=== PATIENT | female | born 1940 | race Caucasian/White ===

== ENCOUNTER 2017-11-07 08:08 | Inpatient (IN) | payer MEDICARE, OTHER ==
[~2017-11-07 08:08] MED LIST: Bupivacaine 25%/EPINEPHrine/PF 30 ML ONE; Lactated Ringers 1,000 ML IV SCH; Midazolam 1 MG/ML 2 ML SDV ONE; Octyl 2-Cyanoacrylate 1 Tube ONE; Ondansetron 4 MG/2 ML SDV ONE; Propofol 200 MG/20 ML SDV ONE; Rocuronium 10 MG/ML 10 ML Syringe ONE; ceFAZolin 1 GM in Premix Bag 1 BAG IV ONE; fentaNYL 250 MCG/5 ML SDV ONE
--- NOTE | 2017-11-07 09:17 | PCM.PREANE ---
Preanesthetic Assessment - Anesthesia/Transfusion/Family Hx Anesthesia History: Prior Anesthesia Without Reaction Type of Anesthesia Reaction: Excessive Nausea/Vomiting Other Type of Anesthesia Reaction Comment: states "is hard to wake up" Family History of Anesthesia Reaction: No Transfusion History: Prior Transfusion Without Reaction Type of Transfusion Reactions: Other Type of Transfusion Reaction: "shaking" Intubation History: Unknown - Review of Systems General: No Symptoms Pulmonary: No Symptoms Cardiovascular: No Symptoms Gastrointestinal: Abdominal Pain Neurological: No Symptoms Other: Reports: None - Physical Assessment O2 Sat by Pulse Oximetry: 96 Respiratory Rate: 16 Vital Signs: Last Vital Signs Temp 36.8 C 11/07/17 09:06 Pulse 96 11/07/17 09:06 Resp 16 11/07/17 09:06 BP 145/70 H 11/07/17 09:06 Pulse Ox 96 11/07/17 09:06 Height: 1.52 m Weight: 81.647 kg ASA Class: 3 Mental Status: Alert & Oriented x3 Airway Class: Mallampati = 2 Dentition: Reports: Normal Dentition (root canals x2 upper front teeth ( discolored)) Thyro-Mental Finger Breadths: 2 Mouth Opening Finger Breadths: 2 ROM/Head Extension: Limited/Partial Lungs: Clear to Auscultation, Normal Respiratory Effort Cardiovascular: Regular Rate, Regular Rhythm - Allergies Allergies/Adverse Reactions: Allergies Allergy/AdvReac Type Severity Reaction Status Date / Time brimonidine [From Alphagan P] Allergy "eye Verified 10/17/17 09:57 infection" ciprofloxacin [From Cipro] Allergy "made me Verified 10/17/17 09:57 tired" lisinopril Allergy Hives Verified 10/17/17 09:57 nitrofurantoin Allergy Rash Verified 10/17/17 09:57 [From Macrobid] Sulfa (Sulfonamide Allergy Rash Verified 10/17/17 09:57 Antibiotics) - Blood Blood Available: No - Anesthesia Plan Pre-Op Medication Ordered: None - Acknowledgements Anesthesia Type Planned: General Anesthesia Pt an Appropriate Candidate for the Planned Anesthesia: Yes Alternatives and Risks of Anesthesia Discussed w Pt/Guardian: Yes Pt/Guardian Understands and Agrees with Anesthesia Plan: Yes PreAnesthesia Questionnaire HEENT History: Reports: Glaucoma, Other (See Below) Other HEENT History: wears glasses Cardiovascular History: Reports: Hypertension Gastrointestinal History: Reports: None Genitourinary History: Reports: None NAIL SETTER History: Reports: , Spontaneous Musculoskeletal History: Reports: Fracture Psychiatric History: Reports: Anxiety, Depression Endocrine/Metabolic History: Reports: Hypothyroidism, Obesity/BMI 30+, Other ( See Below) Other Endocrine/Metabolic History: states is hypoglycemic Hematologic History: Reports: Blood Transfusion(s) - Past Surgical History Head Surgeries/Procedures: Reports: None GI Surgical History: Reports: Other (See Below) Other GI Surgeries/Procedures: laparotomy for stomach tumor Musculoskeletal Surgical History: Reports: Other (See Below) Other Musculoskeletal Surgeries/Procedures:: surgical tx for fx rt leg - SUBSTANCE USE Smoking Status *Q: Former Smoker Recreational Drug Use History: No - HOME MEDS Home Medications: Home Meds Amoxicillin 500 mg PO TID 10/17/17 [History] ClonazePAM [KlonoPIN] 1 tab PO ASDIRECTED PRN 10/17/17 [History] Latanoprost [Xalatan 0.005% Ophth Soln] 1 drop EYEBOTH BEDTIME 10/17/17 [History ] Levothyroxine Sodium [Levoxyl] 88 mcg PO DAILY 10/17/17 [History] Pilocarpine HCl 1 drop EYERT DAILY 10/17/17 [History] Timolol [Betimol 0.5% Ophth Soln] 1 drop EYEBOTH DAILY 10/17/17 [History] amLODIPine [Norvasc] 2.5 mg PO BEDTIME 10/17/17 [History] - CURRENT (IN HOUSE) MEDS Current Meds: Current Medications Lactated Ringer's (Ringers, Lactated) 1,000 mls @ 125 mls/hr IV ASDIRECTED REPLACED BY [facility] Last Admin: 11/07/17 08:57 Dose: 125 mls/hr Discontinued Medications Fentanyl (Sublimaze) Confirm Administered Dose 250 mcg .ROUTE .STK-MED ONE Stop: 11/07/17 08:06 Cefazolin Sodium/Dextrose 1 gm (/ Premix) 50 mls @ 100 mls/hr IV ONETIME ONE Stop: 11/07/17 05:29 Cefazolin Sodium/Dextrose 1 gm (/ Premix) 50 mls @ 100 mls/hr IV ONETIME ONE Stop: 11/07/17 14:57 Lactated Ringer's (Ringers, Lactated) 1,000 mls @ 125 mls/hr IV ASDIRECTED REPLACED BY [facility] Bupivacaine HCl/Epinephrine Bitart (Sensor Mpf 0.25%-Epi 1:[id number]) Confirm Administered Dose 30 mls @ as directed .ROUTE .STK-MED ONE Stop: 11/07/17 07:26 Acetaminophen (Ofirmev) Confirm Administered Dose 100 mls @ as directed IV .STK- MED ONE Stop: 11/07/17 08:23 Midazolam HCl (Versed 1 Mg/Ml) Confirm Administered Dose 2 mg .ROUTE .STK-MED ONE Stop: 11/07/17 08:06 Octyl Cyanoacrylate (Dermabond Advance) Confirm Administered Dose 1 applic .ROUTE .STK-MED ONE Stop: 11/07/17 07:50 Ondansetron HCl (Zofran) Confirm Administered Dose 4 mg .ROUTE .STK-MED ONE Stop: 11/07/17 08:05 Propofol (Diprivan 20 Ml) Confirm Administered Dose 200 mg .ROUTE .STK-MED ONE Stop: 11/07/17 08:06 Rocuronium [place] (Zemuron) Confirm Administered Dose 100 mg .ROUTE .STK-MED ONE Stop: 11/07/17 08:05
[2017-11-07] MEDS ORDERED: Lidocaine 2% 5 ML SDV ONE (09:42)
[2017-11-07] MEDS ORDERED: Dexamethasone 4 MG/ML 5 ML MDV ONE (09:43)
[2017-11-07] MEDS ORDERED: fentaNYL 100 MCG/2 ML SDV ONE (10:47)
[2017-11-07] MEDS ORDERED: HYDROmorphone 2 MG/ML SDV ONE (10:48)
[2017-11-07] MEDS ORDERED: Phenylephrine/Normal Saline 100 MCG/ML 10 ML Syringe ONE (10:52)
[2017-11-07] MEDS ORDERED: Mineral Oil/Petrolatum Ophth Oint 3.5 GM Tube ONE (10:52)
[2017-11-07] MEDS ORDERED: Bupivacaine 0.5% 30 ML SDV ONE (11:00)
[2017-11-07] MEDS ORDERED: Neostigmine Methylsulfate 1 MG/ML 5 ML Syringe ONE (12:10)
[2017-11-07] MEDS ORDERED: Glycopyrrolate 0.2 MG/ML SDV ONE (12:10)
[2017-11-07] MEDS ORDERED: Furosemide 40 MG/4 ML VIAL ONE (12:11)
--- NOTE | 2017-11-07 13:05 | PCM.OPNOTE ---
- General Post-Op/Procedure Note Date of Surgery/Procedure: 11/07/17 Operative Procedure(s): open cholecystectomy and drain placement Findings: gb is thickened wall, distended and bile is purulent, and many large and small gallstones; severe adherence from prior surgery dictated this to be an open surgery Pre Op Diagnosis: acute and chronic cholecystitis Post-Op Diagnosis: Same Anesthesia Technique: General ET Tube Primary Surgeon: Liam Lynne Secondary Surgeon: Chao Ladd Shellac Polisher: resident Pathology: sent Surgical Drain/Tube Type: Juan Luis Martinez Drain Complications: None Condition: Good
[2017-11-07] MEDS ORDERED: Morphine PF 30 MG/30 ML PCA Vial IV PRN (13:10)
[2017-11-07] MEDS ORDERED: Lactated Ringers 1,000 ML IV SCH (13:15)
--- NOTE | 2017-11-07 14:04 | PCM.POSTAN ---
POST ANESTHESIA ASSESSMENT - MENTAL STATUS Mental Status: Alert, Oriented - RESPIRATORY Respiratory Status: Airway Patent, O2 Saturation Stable - CARDIOVASCULAR CV Status: Pulse Rate WNL, Blood Pressure Stable - GASTROINTESTINAL GI Status: No Symptoms - PAIN Pain Score: 2 - POST OP HYDRATION Hydration Status: Adequate & Stable - OBSERVATIONS Free Text/Narrative:: no anesthesia problems
[2017-11-07] MEDS ORDERED: ceFAZolin 1 GM in Premix Bag 1 BAG IV ONE (14:28)
[2017-11-07] MEDS: Levofloxacin/Dextrose 5%-Water 750 MG in Premix Bag 1 BAG IV SCH (14:37)
--- NOTE | 2017-11-07 16:20 | PCM48HPAN ---
Post Anesthesia Note - EVALUATION WITHIN 48HRS OF ANESTHETIC Vital Signs in Normal Range: Yes Patient Participated in Evaluation: Yes Respiratory Function Stable: Yes Airway Patent: Yes Cardiovascular Function Stable: Yes Hydration Status Stable: Yes Pain Control Satisfactory: Yes Nausea and Vomiting Control Satisfactory: Yes Mental Status Recovered: Yes Resp Rate: 10 - COMMENTS/OBSERVATIONS Free Text/Narrative:: remains in ICU. Alert and oriented x 3. vss
[2017-11-07] MEDS: Ondansetron 4 MG/2 ML SDV IVPUSH PRN (18:19)
[2017-11-08] MEDS: Lactated Ringers 1,000 ML IV SCH ×3 (00:26→22:48)
[2017-11-08] MEDS: Ondansetron 4 MG/2 ML SDV IVPUSH PRN ×2 (08:22→16:59)
[2017-11-08] MEDS ORDERED: Lactated Ringers 1,000 ML IV ONE (08:49)
[2017-11-08] MEDS ORDERED: Magnesium Sulfate/Water 2 GM in Premix Bag 1 BAG IV ONE (08:52)
[2017-11-08] MEDS ORDERED: ClonazePAM 0.5 MG Tab PO PRN ×3 (08:54→10:40)
[2017-11-08] MEDS ORDERED: Pilocarpine 4% Ophth Soln 15 ML Bot EYERT SCH (09:00)
--- NOTE | 2017-11-08 09:09 | PCM.SURGPN ---
- General Info Date of Service: 11/08/17 POD#: 1 Post-Op Diagnosis: cholecystitis suppurativa Functional Status: Reports: Pain Controlled - Review of Systems General: Reports: No Symptoms HEENT: Reports: No Symptoms Pulmonary: Reports: No Symptoms Gastrointestinal: Reports: No Symptoms (ruth ann ice chips, pain in good control) - Patient Data Vitals - Most Recent: Last Vital Signs Temp 97.3 F 11/08/17 04:00 Pulse 69 11/07/17 19:00 Resp 15 11/08/17 07:00 BP 143/63 H 11/08/17 07:00 Pulse Ox 94 L 11/08/17 07:00 Weight - Most Recent: 188 lb 0.869 oz I&O - Last 24 Hours: Intake & Output 11/07/17 11/08/17 11/08/17 22:59 06:59 14:59 Intake Total 200 1244 Output Total 440 240 Balance -240 1004 Lab Results Last 24 Hrs: Laboratory Results - last 24 hr 11/07/17 11/07/17 11/08/17 Range/Units 11:25 22:06 05:22 WBC 16.16 H 14.35 H (4.0-11.0) K/uL RBC 5.18 4.71 (4.30-5.90) M/uL Hgb 15.4 13.7 (12.0-16.0) g/dL Hct 45.0 41.2 (36.0-46.0) % MCV 86.9 87.5 (80.0-98.0) fL MCH 29.7 29.1 (27.0-32.0) pg MCHC 34.2 33.3 (31.0-37.0) g/dL RDW Std Deviation 47.9 48.1 (28.0-62.0) fl RDW Coeff of Shira 15 15 (11.0-15.0) % Plt Count 257 218 (150-400) K/uL MPV 9.50 9.30 (7.40-12.00) fL Neut % (Auto) 88.3 H 82.6 H (48.0-80.0) % Lymph % (Auto) 4.4 L 7.5 L (16.0-40.0) % Bullitt % (Auto) 7.2 9.7 (0.0-15.0) % Eos % (Auto) 0.0 0.1 (0.0-7.0) % Baso % (Auto) 0.1 0.1 (0.0-1.5) % Neut # (Auto) 14.3 H 11.9 H (1.4-5.7) K/uL Lymph # (Auto) 0.7 1.1 (0.6-2.4) K/uL Bullitt # (Auto) 1.2 H 1.4 H (0.0-0.8) K/uL Eos # (Auto) 0.0 0.0 (0.0-0.7) K/uL Baso # (Auto) 0.0 0.0 (0.0-0.1) K/uL Nucleated RBC % 0.0 0.0 /100WBC Nucleated RBCs # 0 0 K/uL Sodium (136-145) mmol/L Potassium (3.5-5.1) mmol/L Chloride (98-107) mmol/L Carbon Dioxide (21.0-32.0) mmol/L BUN (7.0-18.0) mg/dL Creatinine (0.6-1.0) mg/dL Est Cr Clr Drug Dosing mL/min Estimated GFR (MDRD) ml/min Glucose (74-106) mg/dL Calcium (8.5-10.1) mg/dL Magnesium (1.5-2.0) mg/dL Total Bilirubin (0.2-1.0) mg/dL AST (15-37) U/L ALT (14-63) U/L Alkaline Phosphatase (46-116) U/L Total Protein (6.4-8.2) g/dL Albumin (3.4-5.0) g/dL Globulin (2.0-3.5) g/dL Albumin/Globulin Ratio (1.3-2.8) Blood Type O POSITIVE Antibody Screen NEGATIVE Crossmatch See Detail 11/08/17 11/08/17 Range/Units 05:22 05:22 WBC (4.0-11.0) K/uL RBC (4.30-5.90) M/uL Hgb (12.0-16.0) g/dL Hct (36.0-46.0) % MCV (80.0-98.0) fL MCH (27.0-32.0) pg MCHC (31.0-37.0) g/dL RDW Std Deviation (28.0-62.0) fl RDW Coeff of Shira (11.0-15.0) % Plt Count (150-400) K/uL MPV (7.40-12.00) fL Neut % (Auto) (48.0-80.0) % Lymph % (Auto) (16.0-40.0) % Bullitt % (Auto) (0.0-15.0) % Eos % (Auto) (0.0-7.0) % Baso % (Auto) (0.0-1.5) % Neut # (Auto) (1.4-5.7) K/uL Lymph # (Auto) (0.6-2.4) K/uL Bullitt # (Auto) (0.0-0.8) K/uL Eos # (Auto) (0.0-0.7) K/uL Baso # (Auto) (0.0-0.1) K/uL Nucleated RBC % /100WBC Nucleated RBCs # K/uL Sodium 140 (136-145) mmol/L Potassium 4.6 (3.5-5.1) mmol/L Chloride 105 (98-107) mmol/L Carbon Dioxide 27.9 (21.0-32.0) mmol/L BUN 13 (7.0-18.0) mg/dL Creatinine 1.1 H (0.6-1.0) mg/dL Est Cr Clr Drug Dosing 30.28 mL/min Estimated GFR (MDRD) 48.0 ml/min Glucose 154 H (74-106) mg/dL Calcium 8.4 L (8.5-10.1) mg/dL Magnesium 1.2 L (1.5-2.0) mg/dL Total Bilirubin 0.7 (0.2-1.0) mg/dL AST 88 H (15-37) U/L ALT 82 H (14-63) U/L Alkaline Phosphatase 55 (46-116) U/L Total Protein 5.6 L (6.4-8.2) g/dL Albumin 2.4 L (3.4-5.0) g/dL Globulin 3.2 (2.0-3.5) g/dL Albumin/Globulin Ratio 0.8 L (1.3-2.8) Blood Type Antibody Screen Crossmatch Med Orders - Current: Current Medications Amlodipine Besylate (Norvasc) 2.5 mg PO BEDTIME SELENE Clonazepam (Klonopin) 0.5 mg PO BEDTIME PRN PRN Reason: Anxiety Levofloxacin/Dextrose 750 mg/ (Premix) 150 mls @ 100 mls/hr IV Q24H SELENE Last Admin: 11/07/17 14:37 Dose: 100 mls/hr Lactated Ringer's (Ringers, Lactated) 1,000 mls @ 100 mls/hr IV ASDIRECTED SELENE Last Admin: 11/08/17 00:26 Dose: 100 mls/hr Lactated Ringer's (Ringers, Lactated) 1,000 mls @ 999 mls/hr IV .BOLUS ONE Stop: 11/08/17 09:49 Last Admin: 11/08/17 08:45 Dose: 999 mls/hr Magnesium Sulfate 2 gm/ Premix 50 mls @ 50 mls/hr IV ONETIME ONE Stop: 11/08/17 09:51 Latanoprost (Xalatan 0.005% Ophth Soln) 0 ml EYEBOTH BEDTIME SELENE Levothyroxine Sodium (Synthroid) 88 mcg PO ACBREAKFAST SELENE Morphine Sulfate (Morphine Injection Machine Operator 30 Mg In 30 Ml) 0 mg IV ASDIRECTED PRN; Protocol PRN Reason: Pain Last Admin: 11/07/17 14:24 Dose: 30 mg Ondansetron HCl (Zofran) 4 mg IVPUSH Q8H PRN PRN Reason: Nausea/Vomiting Last Admin: 11/08/17 08:22 Dose: 4 mg Pilocarpine HCl (Pilocar 4% Ophth Soln) 0 ml EYERT DAILY SELENE Timolol Maleate (Timoptic 0.5% Ophth Soln) 1 ml EYEBOTH DAILY [facility] Discontinued Medications Bupivacaine HCl (Marcaine 0.5%) Confirm Administered Dose 120 ml .ROUTE .STK- MED ONE Stop: 11/07/17 11:01 Clonazepam (Klonopin) 0.5 mg PO ASDIRECTED PRN PRN Reason: Anxiety Dexamethasone (Dexamethasone) Confirm Administered Dose 20 mg .ROUTE .STK-MED ONE Stop: 11/07/17 09:44 Fentanyl (Sublimaze) Confirm Administered Dose 250 mcg .ROUTE .STK-MED ONE Stop: 11/07/17 08:06 Fentanyl (Sublimaze) Confirm Administered Dose 100 mcg .ROUTE .STK-MED ONE Stop: 11/07/17 10:48 Furosemide (Lasix) Confirm Administered Dose 40 mg .ROUTE .STK-MED ONE Stop: 11/07/17 12:12 Glycopyrrolate (Robinul) Confirm Administered Dose 0.4 mg .ROUTE .STK-MED ONE Stop: 11/07/17 12:11 Hydromorphone HCl (Dilaudid) Confirm Administered Dose 2 mg .ROUTE .STK-MED ONE Stop: 11/07/17 10:49 Cefazolin Sodium/Dextrose 1 gm (/ Premix) 50 mls @ 100 mls/hr IV ONETIME ONE Stop: 11/07/17 05:29 Last Admin: 11/07/17 14:33 Dose: Not Given Cefazolin Sodium/Dextrose 1 gm (/ Premix) 50 mls @ 100 mls/hr IV ONETIME ONE Stop: 11/07/17 14:57 Lactated Ringer's (Ringers, Lactated) 1,000 mls @ 125 mls/hr IV ASDIRECTED SELENE Last Infusion: 11/07/17 16:52 Dose: 100 mls/hr Lactated Ringer's (Ringers, Lactated) 1,000 mls @ 125 mls/hr IV ASDIRECTED SELENE Bupivacaine HCl/Epinephrine Bitart (Sensorc Mpf 0.25%-Epi 1:[id number]) Confirm Administered Dose 30 mls @ as directed .ROUTE .STK-MED ONE Stop: 11/07/17 07:26 Acetaminophen (Ofirmev) Confirm Administered Dose 100 mls @ as directed IV .STK- MED ONE Stop: 11/07/17 08:23 Lactated Ringer's (Ringers, Lactated) 1,000 mls @ 75 mls/hr IV ASDIRECTED SELENE Lidocaine (Xylocaine-Mpf 2%) Confirm Administered Dose 5 ml .ROUTE .STK-MED ONE Stop: 11/07/17 09:43 Midazolam HCl (Versed 1 Mg/Ml) Confirm Administered Dose 2 mg .ROUTE .STK-MED ONE Stop: 11/07/17 08:06 Mineral Oil/White Petrolatum (Lacri-Lube S.O.P Oint) Confirm Administered Dose 3.5 gm .ROUTE .STK-MED ONE Stop: 11/07/17 10:53 Neostigmine Methylsulfate (Neostigmine) Confirm Administered Dose 5 mg .ROUTE .STK-MED ONE Stop: 11/07/17 12:11 Octyl Cyanoacrylate (Dermabond Advance) Confirm Administered Dose 1 applic .ROUTE .STK-MED ONE Stop: 11/07/17 07:50 Ondansetron HCl (Zofran) Confirm Administered Dose 4 mg .ROUTE .STK-MED ONE Stop: 11/07/17 08:05 Phenylephrine HCl (Phenylephrine In Ns 100 Mcg/Ml) Confirm Administered Dose 1 mg .ROUTE .STK-MED ONE Stop: 11/07/17 10:53 Propofol (Diprivan 20 Ml) Confirm Administered Dose 200 mg .ROUTE .STK-MED ONE Stop: 11/07/17 08:06 Rocuronium [place] (Zemuron) Confirm Administered Dose 100 mg .ROUTE .STK-MED ONE Stop: 11/07/17 08:05 - Exam Wound/Incisions: Dressing Dry and Intact General: Alert, Oriented Lungs: Clear to Auscultation, Normal Respiratory Effort Cardiovascular: Regular Rate, Regular Rhythm GI/Abdominal Exam: Soft, No Distention Extremities: Normal Inspection Skin: Warm, Dry - Problem List Review Problem List Initiated/Reviewed/Updated: Yes - My Orders Last 24 Hours: Active Orders 24 hr Category Date Time Status Admission Status [Patient Status] [ADT] Routine ADT 11/07/17 13:06 Active Admission Status [Patient Status] [ADT] Routine ADT 11/07/17 13:57 Active Communication Order [RC] Q12H Care 11/07/17 16:47 Active Communication Order [RC] ROUTINE Care 11/07/17 13:13 Active Communication Order [RC] ROUTINE Care 11/07/17 13:19 Active EKG Documentation Completion [RC] STAT Care 11/08/17 06:37 Active Clear Liquid Diet [DIET] Diet 11/08/17 Lunch Active NPO [Nothing Per Oral Diet] [DIET] Diet 11/07/17 Dinner Active RED BLOOD CELLS LP [BBK] Routine Lab 11/07/17 11:25 Results TYPE AND SCREEN [BBK] Routine Lab 11/07/17 11:25 Results ClonazePAM [KlonoPIN] Med 11/08/17 09:15 Active 0.5 mg PO BEDTIME PRN Lactated Ringers [Ringers, Lactated] 1,000 ml Med 11/08/17 08:49 Active IV .BOLUS Lactated Ringers [Ringers, Lactated] 1,000 ml Med 11/07/17 16:46 Active IV ASDIRECTED Latanoprost [Xalatan 0.005% Ophth Soln] Med 11/08/17 21:00 Active 0 ml EYEBOTH BEDTIME Levofloxacin/Dextrose 5%-Water [Levaquin in D5W 750 MG/ Med 11/07/17 13:30 Active 150 ML] 750 mg Premix Bag 1 bag IV Q24H Levothyroxine [Synthroid] Med 11/08/17 07:30 Active 88 mcg PO ACBREAKFAST Magnesium Sulfate/Water [Magnesium Sulfate 2 GM in Med 11/08/17 08:52 Active Water 50 ML] 2 gm Premix Bag 1 bag IV ONETIME Morphine PF [Morphine SAND DRIER 30 MG in 30 ML] Med 11/07/17 13:10 Active 0 mg IV ASDIRECTED PRN Ondansetron [Zofran] Med 11/07/17 13:13 Active 4 mg IVPUSH Q8H PRN Pilocarpine [Pilocar 4% Ophth Soln] Med 11/08/17 09:00 Active 0 ml EYERT DAILY Timolol Maleate [Timoptic 0.5% Ophth Soln] Med 11/08/17 09:00 Active 1 ml EYEBOTH DAILY amLODIPine [Norvasc] Med 11/08/17 21:00 Active 2.5 mg PO BEDTIME Transfuse Red Blood Cells [COMM] Urgent Oth 11/07/17 11:38 Ordered Medication Orders Amlodipine Besylate (Norvasc) 2.5 mg PO BEDTIME SELENE Clonazepam (Klonopin) 0.5 mg PO BEDTIME PRN PRN Reason: Anxiety Levofloxacin/Dextrose 750 mg/ (Premix) 150 mls @ 100 mls/hr IV Q24H [facility] Last Admin: 11/07/17 14:37 Dose: 100 mls/hr Lactated Ringer's (Ringers, Lactated) 1,000 mls @ 100 mls/hr IV ASDIRECTED [facility] Last Admin: 11/08/17 00:26 Dose: 100 mls/hr Lactated Ringer's (Ringers, Lactated) 1,000 mls @ 999 mls/hr IV .BOLUS ONE Stop: 11/08/17 09:49 Last Admin: 11/08/17 08:45 Dose: 999 mls/hr Magnesium Sulfate 2 gm/ Premix 50 mls @ 50 mls/hr IV ONETIME ONE Stop: 11/08/17 09:51 Latanoprost (Xalatan 0.005% Ophth Soln) 0 ml EYEBOTH BEDTIME SELENE Levothyroxine Sodium (Synthroid) 88 mcg PO ACBREAKFAST SELENE Morphine Sulfate (Morphine Injection Machine Operator 30 Mg In 30 Ml) 0 mg IV ASDIRECTED PRN; Protocol PRN Reason: Pain Last Admin: 11/07/17 14:24 Dose: 30 mg Ondansetron HCl (Zofran) 4 mg IVPUSH Q8H PRN PRN Reason: Nausea/Vomiting Last Admin: 11/08/17 08:22 Dose: 4 mg Admin: 11/07/17 18:19 Dose: 4 mg Pilocarpine HCl (Pilocar 4% Ophth Soln) 0 ml EYERT DAILY SELENE Timolol Maleate (Timoptic 0.5% Ophth Soln) 1 ml EYEBOTH DAILY SELENE - Assessment Assessment (Free Text/Narrative):: Doing well, pod#1 from open cholecystectomy and drain placement; got 2 RBC intraop; postop urine output was good, 30+cc /hr, a bit mike, and pt is quite thirsty; heart rate in the 100-110; BR 120+; wt no change; start clear liquid diet; likely txf to floor at noon, poss home in the morning; colten output 50 per shift, ss. Mg 1.2, low, replenished w 2 gm - Plan Plan (Free Text/Narrative):: Doing well, pod#1 from open cholecystectomy and drain placement; got 2 RBC intraop; postop urine output was good, 30+cc /hr, a bit mike, and pt is quite thirsty; heart rate in the 100-110; BR 120+; wt no change; start clear liquid diet; likely txf to floor at noon, poss home in the morning; colten output 50 per shift, ss. Mg 1.2, low, replenished w 2 gm
--- NOTE | 2017-11-08 09:21 | OR ---
SURGEON: Liam Lynne MD DATE OF PROCEDURE: 11/07/2017 PREOPERATIVE DIAGNOSIS: Acute on chronic cholecystitis. POSTOPERATIVE DIAGNOSIS: Gallbladder suppurativa. PROCEDURE PERFORMED: Open cholecystectomy and drain placement. ASSISTANTS: Chao Ladd M.D. and surgical device sales representative. INTRAOPERATIVE FINDINGS: 1. The patient has severe adherence from prior surgery and makes laparoscopic surgery not possible. 2. Gallbladder is thickened walled and with large exudate and hemorrhagic on the surface and severe induration of surrounding organs, consistent with acute on chronic cholecystitis. 3. Surgicel and Avitene have been used to help in hemostasis. 4. Flat 10 CASSIUS drain has been placed. PROCEDURE IN DETAIL: The patient was taken to the operating room and placed in supine position. Upon induction of general endotracheal anesthesia, the patient's abdomen was prepped and draped in a sterile fashion. A time out was done, pt identified abx confirmed, procedure identified, then procedure started. After assessment of appropriate landmarks, vertical incision was made right supraumbilical and was expecting to do a laparoscopic cholecystectomy and attempted to put in the trocar using Jeff technique. After making the skin incision, it was noted that severe adherence of the omentum and small bowel to the abdominal wall by palpation, and the small vertical incision was then enlarged to be like a mini- laparotomy to exam, and laparoscopic surgery is not a good idea, so the mini- laparotomy was then extended into a full laparotomy, extending the incision. A tremendous amount of time, was to take down the adhesions meticulously before the gallbladder can be exposed, no enterotomy was observed. Using a Tray to aid in the exposure, the gallbladder was palpated to have many stones and all the way to the neck of gallbladder. and the wall was thickened and dusky in appearance, anatomy is quite distorted and challenged. we then apsirated the bile to decompress the gallbladder, the bile is thickened and purulent, we changed the aspiration needle to suction tube to finish the aspiration; we attempted to do from top to bottom for the open cholecystectomy, and this resulted in some bleeding. I continued to dissect at presumably to be the cystic duct and carefully dissected with blunt and sharp dissection, and these were tied 2 times using 2-0 Vicryl. Another tubular structure in the Calot's triangle presumably the cystic artery was doubly tied, then endoscopic clip was placed distally, and then the structure was transected. After transection of the cystic duct and the cystic artery, the gallbladder was dissected from the gallbladder fossa, and there was some bleeding on that, so using 3-0 silk, it was suture-ligated with all the inflamed tissue, including a small liver bleed. The gallbladder was then passed off from the field. This was then followed with extensive irrigation and giving hand pressure to the gallbladder fossa bed. On further examination, it was bone dry, and we put in some Avitene and Surgicel as a sandwich structure and put two of them in the gallbladder fossa bed and then applied pressure. A couple minutes later, on further examination, the area was bone dry. A flat 10 CASSIUS drain was then inserted in the right lower quadrant and secured to the skin by the use of 2-0 silk, and then the midline incision was closed by the use of #1 double stranded PDS. Before closing the peritoneal cavity, the abdominal wound sponge count and instrument count were correct, and also irrigation had been done prior to placement of the Surgicel. The skin was then approximated by the use of skin jeferson, and the patient was then transferred to Intensive Care Unit for postop. Upon transfer, the patient received one unit of packed cells and is expected to receive the second unit of packed cells. Dr. Lynne was present through the whole process, and the patient has been hemodynamically stable upon transfer to recovery room. As always, thank you for your kind referral. RENO LAIRD /[id number] TONY
[2017-11-08] MEDS: Levothyroxine 88 MCG Tab PO SCH (10:21)
[2017-11-08] MEDS: Timolol Maleate 0.5% Ophth Soln 15 ML Bottle EYEBOTH SCH (10:59)
[2017-11-08] MEDS: Levofloxacin/Dextrose 5%-Water 750 MG in Premix Bag 1 BAG IV SCH (12:33)
[2017-11-08] MEDS: Pilocarpine 4% Ophth Soln 15 ML Bot EYERT SCH ×2 (14:42→21:35)
[2017-11-08] MEDS ORDERED: Acetaminophen/oxyCODONE 325-5 MG Tab PO PRN (16:39)
[2017-11-08] MEDS: Acetaminophen/oxyCODONE 325-5 MG Tab PO PRN ×2 (16:58→21:31)
[2017-11-08] MEDS: Docusate Sodium 100 MG Cap PO SCH (16:59)
[2017-11-08] MEDS: amLODIPine 2.5 MG Tab PO SCH (20:18)
[2017-11-08] MEDS: Latanoprost 0.005% Ophth Soln 2.5 ML Bottle EYEBOTH SCH (20:23)
[2017-11-09] MEDS: Pilocarpine 4% Ophth Soln 15 ML Bot EYERT SCH ×3 (05:20→21:04)
[2017-11-09 05:53] LABS: CHLORIDE,CL 105 mmol/L (98-107); SODIUM,NA 140 mmol/L (136-145)
[2017-11-09] MEDS: Levothyroxine 88 MCG Tab PO SCH (06:38)
[2017-11-09] MEDS: Acetaminophen/oxyCODONE 325-5 MG Tab PO PRN ×3 (06:38→20:29)
--- NOTE | 2017-11-09 08:54 | PCM.SURGPN ---
- General Info Date of Service: 11/09/17 POD#: 2 Admission Diagnosis/Problem: Cholecystitis Functional Status: Reports: Pain Controlled - Review of Systems General: Reports: No Symptoms HEENT: Reports: No Symptoms (ruth ann clear liquid diet) - Patient Data Vitals - Most Recent: Last Vital Signs Temp 97.9 F 11/09/17 08:00 Pulse 84 11/09/17 08:00 Resp 18 11/09/17 08:00 BP 137/68 11/09/17 08:00 Pulse Ox 94 L 11/09/17 08:00 Weight - Most Recent: 190 lb 4.143 oz I&O - Last 24 Hours: Intake & Output 11/08/17 11/09/17 11/09/17 22:59 06:59 14:59 Intake Total 600 1353 Output Total 610 925 275 Balance -10 428 -275 Lab Results Last 24 Hrs: Laboratory Results - last 24 hr 11/07/17 11/09/17 11/09/17 Range/Units 11:25 05:20 05:20 WBC 9.10 (4.0-11.0) K/uL RBC 4.01 L (4.30-5.90) M/uL Hgb 11.7 L (12.0-16.0) g/dL Hct 35.6 L (36.0-46.0) % MCV 88.8 (80.0-98.0) fL MCH 29.2 (27.0-32.0) pg MCHC 32.9 (31.0-37.0) g/dL RDW Std Deviation 50.2 (28.0-62.0) fl RDW Coeff of Shira 15 (11.0-15.0) % Plt Count 155 (150-400) K/uL MPV 9.30 (7.40-12.00) fL Neut % (Auto) 77.4 (48.0-80.0) % Lymph % (Auto) 12.1 L (16.0-40.0) % [place] % (Auto) 10.0 (0.0-15.0) % Eos % (Auto) 0.4 (0.0-7.0) % Baso % (Auto) 0.1 (0.0-1.5) % Neut # (Auto) 7.0 H (1.4-5.7) K/uL Lymph # (Auto) 1.1 (0.6-2.4) K/uL [place] # (Auto) 0.9 H (0.0-0.8) K/uL Eos # (Auto) 0.0 (0.0-0.7) K/uL Baso # (Auto) 0.0 (0.0-0.1) K/uL Nucleated RBC % 0.0 /100WBC Nucleated RBCs # 0 K/uL Sodium 140 (136-145) mmol/L Potassium 4.2 (3.5-5.1) mmol/L Chloride 105 (98-107) mmol/L Carbon Dioxide 30.9 (21.0-32.0) mmol/L BUN 9 (7.0-18.0) mg/dL Creatinine 0.8 (0.6-1.0) mg/dL Est Cr Clr Drug Dosing 41.63 mL/min Estimated GFR (MDRD) > 60.0 ml/min Glucose 115 H (74-106) mg/dL Calcium 8.2 L (8.5-10.1) mg/dL Magnesium 1.5 (1.5-2.0) mg/dL Total Bilirubin 0.8 (0.2-1.0) mg/dL AST 42 H (15-37) IU/L ALT 45 (14-63) IU/L Alkaline Phosphatase 55 (46-116) U/L Total Protein 5.2 L (6.4-8.2) g/dL Albumin 2.1 L (3.4-5.0) g/dL Globulin 3.1 (2.0-3.5) g/dL Albumin/Globulin Ratio 0.7 L (1.3-2.8) Blood Type O POSITIVE Antibody Screen NEGATIVE Crossmatch See Detail Med Orders - Current: Current Medications Amlodipine Besylate (Norvasc) 2.5 mg PO BEDTIME [facility] Last Admin: 11/08/17 20:18 Dose: 2.5 mg Clonazepam (Klonopin) 0.25 mg PO DAILY PRN PRN Reason: Anxiety Docusate Sodium (Colace) 100 mg PO DAILY [facility] Last Admin: 11/08/17 16:59 Dose: 100 mg Levofloxacin/Dextrose 750 mg/ (Premix) 150 mls @ 100 mls/hr IV Q24H [facility] Last Admin: 11/08/17 12:33 Dose: 100 mls/hr Lactated Ringer's (Ringers, Lactated) 1,000 mls @ 50 mls/hr IV ASDIRECTED [facility] Latanoprost (Xalatan 0.005% Ophth Soln) 0 ml EYEBOTH BEDTIME [facility] Last Admin: 11/08/17 20:23 Dose: 1 drop Levothyroxine Sodium (Synthroid) 88 mcg PO ACBREAKFAST [facility] Last Admin: 11/09/17 06:38 Dose: 88 mcg Ondansetron HCl (Zofran) 4 mg IVPUSH Q8H PRN PRN Reason: Nausea/Vomiting Last Admin: 11/08/17 16:59 Dose: 4 mg Oxycodone/Acetaminophen (Percocet 325-5 Mg) 1 tab PO Q4H PRN PRN Reason: Pain Last Admin: 11/09/17 06:38 Dose: 1 tab Pilocarpine HCl (Pilocar 4% Ophth Soln) 1 ml EYERT TID [facility] Last Admin: 11/09/17 05:20 Dose: 1 drop Timolol Maleate (Timoptic 0.5% Ophth Soln) 1 ml EYEBOTH DAILY [facility] Last Admin: 11/08/17 10:59 Dose: 1 drop Discontinued Medications Bupivacaine HCl (Marcaine 0.5%) Confirm Administered Dose 120 ml .ROUTE .STK- MED ONE Stop: 11/07/17 11:01 Clonazepam (Klonopin) 0.5 mg PO ASDIRECTED PRN PRN Reason: Anxiety Clonazepam (Klonopin) 0.5 mg PO BEDTIME PRN PRN Reason: Anxiety Dexamethasone (Dexamethasone) Confirm Administered Dose 20 mg .ROUTE .STK-MED ONE Stop: 11/07/17 09:44 Fentanyl (Sublimaze) Confirm Administered Dose 250 mcg .ROUTE .STK-MED ONE Stop: 11/07/17 08:06 Fentanyl (Sublimaze) Confirm Administered Dose 100 mcg .ROUTE .STK-MED ONE Stop: 11/07/17 10:48 Furosemide (Lasix) Confirm Administered Dose 40 mg .ROUTE .STK-MED ONE Stop: 11/07/17 12:12 Glycopyrrolate (Robinul) Confirm Administered Dose 0.4 mg .ROUTE .STK-MED ONE Stop: 11/07/17 12:11 Hydromorphone HCl (Dilaudid) Confirm Administered Dose 2 mg .ROUTE .STK-MED ONE Stop: 11/07/17 10:49 Cefazolin Sodium/Dextrose 1 gm (/ Premix) 50 mls @ 100 mls/hr IV ONETIME ONE Stop: 11/07/17 05:29 Last Admin: 11/07/17 14:33 Dose: Not Given Cefazolin Sodium/Dextrose 1 gm (/ Premix) 50 mls @ 100 mls/hr IV ONETIME ONE Stop: 11/07/17 14:57 Lactated Ringer's (Ringers, Lactated) 1,000 mls @ 125 mls/hr IV ASDIRECTED [facility] Last Infusion: 11/07/17 16:52 Dose: 100 mls/hr Lactated Ringer's (Ringers, Lactated) 1,000 mls @ 125 mls/hr IV ASDIRECTED [facility] Bupivacaine HCl/Epinephrine Bitart (Sensorc Mpf 0.25%-Epi 1:[id number]) Confirm Administered Dose 30 mls @ as directed .ROUTE .STK-MED ONE Stop: 11/07/17 07:26 Acetaminophen (Ofirmev) Confirm Administered Dose 100 mls @ as directed IV .STK- MED ONE Stop: 11/07/17 08:23 Lactated Ringer's (Ringers, Lactated) 1,000 mls @ 75 mls/hr IV ASDIRECTED SEL[facility] Lactated Ringer's (Ringers, Lactated) 1,000 mls @ 100 mls/hr IV ASDIRECTED [facility] Last Admin: 11/08/17 22:48 Dose: 100 mls/hr Lactated Ringer's (Ringers, Lactated) 1,000 mls @ 999 mls/hr IV .BOLUS ONE Stop: 11/08/17 09:49 Last Admin: 11/08/17 08:45 Dose: 999 mls/hr Magnesium Sulfate 2 gm/ Premix 50 mls @ 50 mls/hr IV ONETIME ONE Stop: 11/08/17 09:51 Last Admin: 11/08/17 09:53 Dose: 50 mls/hr Lidocaine (Xylocaine-Mpf 2%) Confirm Administered Dose 5 ml .ROUTE .STK-MED ONE Stop: 11/07/17 09:43 Midazolam HCl (Versed 1 Mg/Ml) Confirm Administered Dose 2 mg .ROUTE .STK-MED ONE Stop: 11/07/17 08:06 Mineral Oil/White Petrolatum (Lacri-Lube S.O.P Oint) Confirm Administered Dose 3.5 gm .ROUTE .STK-MED ONE Stop: 11/07/17 10:53 Morphine Sulfate (Morphine Lead Auditor 30 Mg In 30 Ml) 0 mg IV ASDIRECTED PRN; Protocol PRN Reason: Pain Last Admin: 11/07/17 14:24 Dose: 30 mg Neostigmine Methylsulfate (Neostigmine) Confirm Administered Dose 5 mg .ROUTE .STK-MED ONE Stop: 11/07/17 12:11 Octyl Cyanoacrylate (Dermabond Advance) Confirm Administered Dose 1 applic .ROUTE .STK-MED ONE Stop: 11/07/17 07:50 Ondansetron HCl (Zofran) Confirm Administered Dose 4 mg .ROUTE .STK-MED ONE Stop: 11/07/17 08:05 Oxycodone/Acetaminophen (Percocet 325-5 Mg) 1 tab PO Q4H PRN PRN Reason: Pain Phenylephrine HCl (Phenylephrine In Ns 100 Mcg/Ml) Confirm Administered Dose 1 mg .ROUTE .STK-MED ONE Stop: 11/07/17 10:53 Pilocarpine HCl (Pilocar 4% Ophth Soln) 0 ml EYERT DAILY [facility] Last Admin: 11/08/17 10:49 Dose: Not Given Propofol (Diprivan 20 Ml) Confirm Administered Dose 200 mg .ROUTE .STK-MED ONE Stop: 11/07/17 08:06 Rocuronium [place] (Zemuron) Confirm Administered Dose 100 mg .ROUTE .STK-MED ONE Stop: 11/07/17 08:05 - Exam Wound/Incisions: No Drainage General: Alert, Oriented Neck: Supple Lungs: Clear to Auscultation Cardiovascular: Regular Rate GI/Abdominal Exam: Soft, No Distention Skin: Warm, Dry - Problem List Review Problem List Initiated/Reviewed/Updated: Yes - My Orders Last 24 Hours: Active Orders 24 hr Category Date Time Status Transfer Patient (Change bed) [ADT] Routine ADT 11/08/17 16:35 Ordered Remove Gray Catheter [Urinary Catheter Removal] [RC] Care 11/09/17 08:45 Active Per Unit Routine Clear Liquid Diet [DIET] Diet 11/08/17 Lunch Active Full Liquid Diet [DIET] Diet 11/09/17 Lunch Active CBC WITH AUTO DIFF [HEME] Routine Lab 11/10/17 05:11 Ordered Acetaminophen/oxyCODONE [Percocet 325-5 MG] Med 11/08/17 16:40 Active 1 tab PO Q4H PRN ClonazePAM [KlonoPIN] Med 11/08/17 10:40 Active 0.25 mg PO DAILY PRN Docusate Sodium [Colace] Med 11/08/17 16:45 Active 100 mg PO DAILY Lactated Ringers [Ringers, Lactated] 1,000 ml Med 11/09/17 08:43 Active IV ASDIRECTED Latanoprost [Xalatan 0.005% Ophth Soln] Med 11/08/17 21:00 Active 0 ml EYEBOTH BEDTIME Pilocarpine [Pilocar 4% Ophth Soln] Med 11/08/17 14:00 Active 1 ml EYERT TID Timolol Maleate [Timoptic 0.5% Ophth Soln] Med 11/08/17 09:00 Active 1 ml EYEBOTH DAILY amLODIPine [Norvasc] Med 11/08/17 21:00 Active 2.5 mg PO BEDTIME Medication Orders Amlodipine Besylate (Norvasc) 2.5 mg PO BEDTIME [facility] Last Admin: 11/08/17 20:18 Dose: 2.5 mg Clonazepam (Klonopin) 0.25 mg PO DAILY PRN PRN Reason: Anxiety Docusate Sodium (Colace) 100 mg PO DAILY [facility] Last Admin: 11/08/17 16:59 Dose: 100 mg Levofloxacin/Dextrose 750 mg/ (Premix) 150 mls @ 100 mls/hr IV Q24H [facility] Last Admin: 11/08/17 12:33 Dose: 100 mls/hr Infusion: 11/07/17 16:07 Dose: 100 mls/hr Admin: 11/07/17 14:37 Dose: 100 mls/hr Lactated Ringer's (Ringers, Lactated) 1,000 mls @ 50 mls/hr IV ASDIRECTED [facility] Latanoprost (Xalatan 0.005% Ophth Soln) 0 ml EYEBOTH BEDTIME [facility] Last Admin: 11/08/17 20:23 Dose: 1 drop Levothyroxine Sodium (Synthroid) 88 mcg PO ACBREAKFAST [facility] Last Admin: 11/09/17 06:38 Dose: 88 mcg Admin: 11/08/17 10:21 Dose: 88 mcg Ondansetron HCl (Zofran) 4 mg IVPUSH Q8H PRN PRN Reason: Nausea/Vomiting Last Admin: 11/08/17 16:59 Dose: 4 mg Admin: 11/08/17 08:22 Dose: 4 mg Admin: 11/07/17 18:19 Dose: 4 mg Oxycodone/Acetaminophen (Percocet 325-5 Mg) 1 tab PO Q4H PRN PRN Reason: Pain Last Admin: 11/09/17 06:38 Dose: 1 tab Admin: 11/08/17 21:31 Dose: 1 tab Admin: 11/08/17 16:58 Dose: 1 tab Pilocarpine HCl (Pilocar 4% Ophth Soln) 1 ml EYERT TID [facility] Last Admin: 11/09/17 05:20 Dose: 1 drop Admin: 11/08/17 21:35 Dose: 1 drop Admin: 11/08/17 14:42 Dose: 1 drop Timolol Maleate (Timoptic 0.5% Ophth Soln) 1 ml EYEBOTH DAILY [facility] Last Admin: 11/08/17 10:59 Dose: 1 drop - Assessment Assessment (Free Text/Narrative):: pod#2 open sendy for cholecystitis suppurativa; doing well, amb w asst; colten 5 cc/ 24 hr; h/h ; uop 2000/24 hr; - Plan Plan (Free Text/Narrative):: pod#2 open sendy for cholecystitis suppurativa; doing well, amb w asst; colten 5 cc/ 24 hr; h/h ; uop 2000/24 hr; 1) dc gray 2) dec ivf 50 cc/hr 3) up full liquid diet, low fat 4) poss dc colten tomorrow and home 5) encourage po intake and amb w asst 6) pt txf out from icu yesterday 7) check cbc tomorrow; wbc is 9 today
[2017-11-09] MEDS: Timolol Maleate 0.5% Ophth Soln 15 ML Bottle EYEBOTH SCH (09:02)
[2017-11-09] MEDS: Docusate Sodium 100 MG Cap PO SCH (09:02)
[2017-11-09] MEDS: Lactated Ringers 1,000 ML IV SCH ×2 (10:52→20:32)
[2017-11-09] MEDS: Ondansetron 4 MG/2 ML SDV IVPUSH PRN ×2 (11:42→20:41)
[2017-11-09] MEDS: Levofloxacin/Dextrose 5%-Water 750 MG in Premix Bag 1 BAG IV SCH (14:46)
[2017-11-09] MEDS ORDERED: Lactated Ringers 1,000 ML IV ONE (15:22)
[2017-11-09] MEDS ORDERED: Aluminum Hydroxide/Magnesium Hydroxide/Simethicone Susp 30 ML Cup PO PRN (15:24)
[2017-11-09] MEDS ORDERED: Calcium Carbonate 500 MG Tab.Chew PO PRN (16:34)
[2017-11-09] MEDS: Latanoprost 0.005% Ophth Soln 2.5 ML Bottle EYEBOTH SCH (20:29)
[2017-11-09] MEDS: amLODIPine 2.5 MG Tab PO SCH (20:29)
[2017-11-10] MEDS: Pilocarpine 4% Ophth Soln 15 ML Bot EYERT SCH ×3 (05:21→22:25)
[2017-11-10] MEDS: Levothyroxine 88 MCG Tab PO SCH (06:35)
[2017-11-10] MEDS: Acetaminophen/oxyCODONE 325-5 MG Tab PO PRN (06:35)
[2017-11-10] MEDS: Timolol Maleate 0.5% Ophth Soln 15 ML Bottle EYEBOTH SCH (08:08)
[2017-11-10] MEDS: Docusate Sodium 100 MG Cap PO SCH (08:08)
[2017-11-10] MEDS ORDERED: Furosemide 20 MG Tab PO ONE ×2 (12:57)
--- NOTE | 2017-11-10 13:10 | PCM.SURGPN ---
- General Info Date of Service: 11/10/17 Date of Surgery/Procedure: 11/07/17 POD#: 3 Functional Status: Reports: Pain Controlled - Review of Systems General: Reports: No Symptoms Gastrointestinal: Reports: No Symptoms - Patient Data Vitals - Most Recent: Last Vital Signs Temp 97.4 F 11/10/17 12:00 Pulse 82 11/10/17 12:00 Resp 18 11/10/17 12:00 BP 131/67 11/10/17 12:00 Pulse Ox 92 L 11/10/17 12:00 Weight - Most Recent: 192 lb 14.472 oz I&O - Last 24 Hours: Intake & Output 11/09/17 11/10/17 11/10/17 22:59 06:59 14:59 Intake Total 1750 875 Output Total 400 855 Balance 1350 20 Lab Results Last 24 Hrs: Laboratory Results - last 24 hr 11/10/17 Range/Units 05:26 WBC 10.02 (4.0-11.0) K/uL RBC 4.22 L (4.30-5.90) M/uL Hgb 12.4 (12.0-16.0) g/dL Hct 36.7 (36.0-46.0) % MCV 87.0 (80.0-98.0) fL MCH 29.4 (27.0-32.0) pg MCHC 33.8 (31.0-37.0) g/dL RDW Std Deviation 47.6 (28.0-62.0) fl RDW Coeff of Shira 15 (11.0-15.0) % Plt Count 166 (150-400) K/uL MPV 9.70 (7.40-12.00) fL Neut % (Auto) 77.9 (48.0-80.0) % Lymph % (Auto) 11.3 L (16.0-40.0) % [place] % (Auto) 10.0 (0.0-15.0) % Eos % (Auto) 0.6 (0.0-7.0) % Baso % (Auto) 0.2 (0.0-1.5) % Neut # (Auto) 7.8 H (1.4-5.7) K/uL Lymph # (Auto) 1.1 (0.6-2.4) K/uL [place] # (Auto) 1.0 H (0.0-0.8) K/uL Eos # (Auto) 0.1 (0.0-0.7) K/uL Baso # (Auto) 0.0 (0.0-0.1) K/uL Nucleated RBC % 0.0 /100WBC Nucleated RBCs # 0 K/uL Med Orders - Current: Current Medications Al Hydroxide/Mg Hydroxide (Mag-Al Plus) 15 ml PO Q6H PRN PRN Reason: Heartburn Last Admin: 11/09/17 15:53 Dose: 15 ml Amlodipine Besylate (Norvasc) 2.5 mg PO BEDTIME [facility] Last Admin: 11/09/17 20:29 Dose: 2.5 mg Calcium Carbonate/Glycine (Tums) 1,000 mg PO Q4HR PRN PRN Reason: Heartburn Last Admin: 11/09/17 16:55 Dose: 1,000 mg Clonazepam (Klonopin) 0.25 mg PO DAILY PRN PRN Reason: Anxiety Docusate Sodium (Colace) 100 mg PO DAILY [facility] Last Admin: 11/10/17 08:08 Dose: 100 mg Levofloxacin/Dextrose 750 mg/ (Premix) 150 mls @ 100 mls/hr IV Q48H [facility] Last Admin: 11/09/17 14:46 Dose: 100 mls/hr Latanoprost (Xalatan 0.005% Ophth Soln) 0 ml EYEBOTH BEDTIME [facility] Last Admin: 11/09/17 20:29 Dose: 1 drop Levothyroxine Sodium (Synthroid) 88 mcg PO ACBREAKFAST [facility] Last Admin: 11/10/17 06:35 Dose: 88 mcg Ondansetron HCl (Zofran) 4 mg IVPUSH Q8H PRN PRN Reason: Nausea/Vomiting Last Admin: 11/09/17 20:41 Dose: 4 mg Oxycodone/Acetaminophen (Percocet 325-5 Mg) 1 tab PO Q4H PRN PRN Reason: Pain Last Admin: 11/10/17 06:35 Dose: 1 tab Pilocarpine HCl (Pilocar 4% Ophth Soln) 1 ml EYERT TID [facility] Last Admin: 11/10/17 05:21 Dose: 1 drop Timolol Maleate (Timoptic 0.5% Ophth Soln) 1 ml EYEBOTH DAILY [facility] Last Admin: 11/10/17 08:08 Dose: 1 drop Discontinued Medications Bupivacaine HCl (Marcaine 0.5%) Confirm Administered Dose 120 ml .ROUTE .STK- MED ONE Stop: 11/07/17 11:01 Clonazepam (Klonopin) 0.5 mg PO ASDIRECTED PRN PRN Reason: Anxiety Clonazepam (Klonopin) 0.5 mg PO BEDTIME PRN PRN Reason: Anxiety Dexamethasone (Dexamethasone) Confirm Administered Dose 20 mg .ROUTE .STK-MED ONE Stop: 11/07/17 09:44 Fentanyl (Sublimaze) Confirm Administered Dose 250 mcg .ROUTE .STK-MED ONE Stop: 11/07/17 08:06 Fentanyl (Sublimaze) Confirm Administered Dose 100 mcg .ROUTE .STK-MED ONE Stop: 11/07/17 10:48 Furosemide (Lasix) Confirm Administered Dose 40 mg .ROUTE .STK-MED ONE Stop: 11/07/17 12:12 Furosemide (Lasix) 20 mg PO ONETIME ONE Stop: 11/10/17 12:58 Last Admin: 11/10/17 13:03 Dose: Not Given Furosemide (Lasix) 10 mg PO ONETIME ONE Stop: 11/10/17 12:58 Glycopyrrolate (Robinul) Confirm Administered Dose 0.4 mg .ROUTE .STK-MED ONE Stop: 11/07/17 12:11 Hydromorphone HCl (Dilaudid) Confirm Administered Dose 2 mg .ROUTE .STK-MED ONE Stop: 11/07/17 10:49 Cefazolin Sodium/Dextrose 1 gm (/ Premix) 50 mls @ 100 mls/hr IV ONETIME ONE Stop: 11/07/17 05:29 Last Admin: 11/07/17 14:33 Dose: Not Given Cefazolin Sodium/Dextrose 1 gm (/ Premix) 50 mls @ 100 mls/hr IV ONETIME ONE Stop: 11/07/17 14:57 Lactated Ringer's (Ringers, Lactated) 1,000 mls @ 125 mls/hr IV ASDIRECTED [facility]EL[facility] Last Infusion: 11/07/17 16:52 Dose: 100 mls/hr Lactated Ringer's (Ringers, Lactated) 1,000 mls @ 125 mls/hr IV ASDIRECTED [facility] Bupivacaine HCl/Epinephrine Bitart (Sensorc Mpf 0.25%-Epi 1:[id number]) Confirm Administered Dose 30 mls @ as directed .ROUTE .STK-MED ONE Stop: 11/07/17 07:26 Acetaminophen (Ofirmev) Confirm Administered Dose 100 mls @ as directed IV .STK- MED ONE Stop: 11/07/17 08:23 Lactated Ringer's (Ringers, Lactated) 1,000 mls @ 75 mls/hr IV ASDIRECTED [facility] Levofloxacin/Dextrose 750 mg/ (Premix) 150 mls @ 100 mls/hr IV Q24H [facility] Last Admin: 11/08/17 12:33 Dose: 100 mls/hr Lactated Ringer's (Ringers, Lactated) 1,000 mls @ 100 mls/hr IV ASDIRECTED [facility] Last Admin: 11/08/17 22:48 Dose: 100 mls/hr Lactated Ringer's (Ringers, Lactated) 1,000 mls @ 999 mls/hr IV .BOLUS ONE Stop: 11/08/17 09:49 Last Admin: 11/08/17 08:45 Dose: 999 mls/hr Magnesium Sulfate 2 gm/ Premix 50 mls @ 50 mls/hr IV ONETIME ONE Stop: 11/08/17 09:51 Last Admin: 11/08/17 09:53 Dose: 50 mls/hr Lactated Ringer's (Ringers, Lactated) 1,000 mls @ 50 mls/hr IV ASDIRECTED [facility] Last Admin: 11/09/17 20:32 Dose: 50 mls/hr Lactated Ringer's (Ringers, Lactated) 1,000 mls @ 999 mls/hr IV .BOLUS ONE Stop: 11/09/17 16:22 Last Admin: 11/09/17 15:52 Dose: 999 mls/hr Lidocaine (Xylocaine-Mpf 2%) Confirm Administered Dose 5 ml .ROUTE .STK-MED ONE Stop: 11/07/17 09:43 Midazolam HCl (Versed 1 Mg/Ml) Confirm Administered Dose 2 mg .ROUTE .STK-MED ONE Stop: 11/07/17 08:06 Mineral Oil/White Petrolatum (Lacri-Lube S.O.P Oint) Confirm Administered Dose 3.5 gm .ROUTE .STK-MED ONE Stop: 11/07/17 10:53 Morphine Sulfate (Morphine Manager Combination 30 Mg In 30 Ml) 0 mg IV ASDIRECTED PRN; Protocol PRN Reason: Pain Last Admin: 11/07/17 14:24 Dose: 30 mg Neostigmine Methylsulfate (Neostigmine) Confirm Administered Dose 5 mg .ROUTE .STK-MED ONE Stop: 11/07/17 12:11 Octyl Cyanoacrylate (Dermabond Advance) Confirm Administered Dose 1 applic .ROUTE .STK-MED ONE Stop: 11/07/17 07:50 Ondansetron HCl (Zofran) Confirm Administered Dose 4 mg .ROUTE .STK-MED ONE Stop: 11/07/17 08:05 Oxycodone/Acetaminophen (Percocet 325-5 Mg) 1 tab PO Q4H PRN PRN Reason: Pain Phenylephrine HCl (Phenylephrine In Ns 100 Mcg/Ml) Confirm Administered Dose 1 mg .ROUTE .STK-MED ONE Stop: 11/07/17 10:53 Pilocarpine HCl (Pilocar 4% Ophth Soln) 0 ml EYERT DAILY [facility] Last Admin: 11/08/17 10:49 Dose: Not Given Propofol (Diprivan 20 Ml) Confirm Administered Dose 200 mg .ROUTE .STK-MED ONE Stop: 11/07/17 08:06 Rocuronium [place] (Zemuron) Confirm Administered Dose 100 mg .ROUTE .STK-MED ONE Stop: 11/07/17 08:05 - Exam Wound/Incisions: Healing Well (wound dry, abd soft) General: Alert, Oriented GI/Abdominal Exam: Soft, Non-Tender, No Distention - Problem List Review Problem List Initiated/Reviewed/Updated: Yes - My Orders Last 24 Hours: Active Orders 24 hr Category Date Time Status Low Fat Diet [DIET] Diet 11/10/17 Dinner Active Alum Hydrox/Mag Hydrox/Simeth [Mag-Al Plus] Med 11/09/17 15:24 Active 15 ml PO Q6H PRN Calcium Carbonate [Tums] Med 11/09/17 16:34 Active 1,000 mg PO Q4HR PRN Levofloxacin/Dextrose 5%-Water [Levaquin in D5W 750 MG/ Med 11/09/17 13:00 Active 150 ML] 750 mg Premix Bag 1 bag IV Q48H Medication Orders Al Hydroxide/Mg Hydroxide (Mag-Al Plus) 15 ml PO Q6H PRN PRN Reason: Heartburn Last Admin: 11/09/17 15:53 Dose: 15 ml Amlodipine Besylate (Norvasc) 2.5 mg PO BEDTIME [facility] Last Admin: 11/09/17 20:29 Dose: 2.5 mg Admin: 11/08/17 20:18 Dose: 2.5 mg Calcium Carbonate/Glycine (Tums) 1,000 mg PO Q4HR PRN PRN Reason: Heartburn Last Admin: 11/09/17 16:55 Dose: 1,000 mg Clonazepam (Klonopin) 0.25 mg PO DAILY PRN PRN Reason: Anxiety Docusate Sodium (Colace) 100 mg PO DAILY [facility] Last Admin: 11/10/17 08:08 Dose: 100 mg Admin: 11/09/17 09:02 Dose: 100 mg Admin: 11/08/17 16:59 Dose: 100 mg Levofloxacin/Dextrose 750 mg/ (Premix) 150 mls @ 100 mls/hr IV Q48H [facility] Last Admin: 11/09/17 14:46 Dose: 100 mls/hr Latanoprost (Xalatan 0.005% Ophth Soln) 0 ml EYEBOTH BEDTIME [facility] Last Admin: 11/09/17 20:29 Dose: 1 drop Admin: 11/08/17 20:23 Dose: 1 drop Levothyroxine Sodium (Synthroid) 88 mcg PO ACBREAKFAST [facility] Last Admin: 11/10/17 06:35 Dose: 88 mcg Admin: 11/09/17 06:38 Dose: 88 mcg Admin: 11/08/17 10:21 Dose: 88 mcg Ondansetron HCl (Zofran) 4 mg IVPUSH Q8H PRN PRN Reason: Nausea/Vomiting Last Admin: 11/09/17 20:41 Dose: 4 mg Admin: 11/09/17 11:42 Dose: 4 mg Admin: 11/08/17 16:59 Dose: 4 mg Admin: 11/08/17 08:22 Dose: 4 mg Admin: 11/07/17 18:19 Dose: 4 mg Oxycodone/Acetaminophen (Percocet 325-5 Mg) 1 tab PO Q4H PRN PRN Reason: Pain Last Admin: 11/10/17 06:35 Dose: 1 tab Admin: 11/09/17 20:29 Dose: 1 tab Admin: 11/09/17 11:42 Dose: 1 tab Admin: 11/09/17 06:38 Dose: 1 tab Admin: 11/08/17 21:31 Dose: 1 tab Admin: 11/08/17 16:58 Dose: 1 tab Pilocarpine HCl (Pilocar 4% Ophth Soln) 1 ml EYERT TID [facility] Last Admin: 11/10/17 05:21 Dose: 1 drop Admin: 11/09/17 21:04 Dose: 1 drop Admin: 11/09/17 14:46 Dose: 1 drop Admin: 11/09/17 05:20 Dose: 1 drop Admin: 11/08/17 21:35 Dose: 1 drop Admin: 11/08/17 14:42 Dose: 1 drop Timolol Maleate (Timoptic 0.5% Ophth Soln) 1 ml EYEBOTH DAILY [facility] Last Admin: 11/10/17 08:08 Dose: 1 drop Admin: 11/09/17 09:02 Dose: 1 drop Admin: 11/08/17 10:59 Dose: 1 drop - Assessment Assessment (Free Text/Narrative):: pod open sendy; afeb, ruth ann po intake, albeit small bite. lab all normal; pt felt weak, and require asst in amb; plan to discharge home when ready with home health to follow with PT/OT. She is in need of PT for positioning on open sendy surgery and for wound management; and strengthening exercises.; She would also benefit from OT to assist in home safety and ADLs. She is home bound and needs assistance of (also in the early eighties) or family to leave home along with walker. Her PCP, Dr. Rose and myself will follow through with care plan. She is to return to ED or clinic if concerns should arise. - Plan Plan (Free Text/Narrative):: pod open sendy; afeb, ruth ann po intake, albeit small bite. lab all normal; pt felt weak, and require asst in amb; plan to discharge home when ready with home health to follow with PT/OT. She is in need of PT for positioning on open sendy surgery and for wound management; and strengthening exercises.; She would also benefit from OT to assist in home safety and ADLs. She is home bound and needs assistance of (also in the early eighties) or family to leave home along with walker. Her PCP, Dr. Rose and myself will follow through with care plan. She is to return to ED or clinic if concerns should arise.
[2017-11-10] MEDS: amLODIPine 2.5 MG Tab PO SCH (20:06)
[2017-11-10] MEDS: Latanoprost 0.005% Ophth Soln 2.5 ML Bottle EYEBOTH SCH (21:00)
[2017-11-11] MEDS: Pilocarpine 4% Ophth Soln 15 ML Bot EYERT SCH ×2 (06:54→13:26)
[2017-11-11] MEDS: Levothyroxine 88 MCG Tab PO SCH (06:56)
[2017-11-11] MEDS: Docusate Sodium 100 MG Cap PO SCH (08:13)
[2017-11-11] MEDS: Timolol Maleate 0.5% Ophth Soln 15 ML Bottle EYEBOTH SCH (08:15)
--- NOTE | 2017-11-11 11:59 | PCM.DCSUM1 ---
Discharge Summary - Hospital Course Brief History: pt admitted from [facility] for open cholecystectomy for cholecystitis suppurativa; referred to admission h/p for details - Discharge Data Discharge Date: 11/11/17 Discharge Disposition: Home, Self-Care 01 Condition: Good - Patient Summary/Data Operative Procedure(s) Performed: open cholecystectomy and drain placement Complications: none Recommended Follow-up Testing/Procedures: had madhu appt coming wed Hospital Course: pt admitted from [facility] s/p open cholecystectomy for cholecystitis suppurativa; pt received 2 rbc intraop; postop stayed in icu; icu stay was uneventful; txferred to the floor the next day; bowel function returned pod#3; and po diet was advanced; pt continued to feel weak, and had amb w asst from nursing staff; purulent bile, on iv abx; will continue abx po X 2 more days; home on pain script and po abx, colten drain put out 100 cc ss fluid everyday; will dc colten in office when output less than 25 cc a day; upon dc, pt is amb w walker by self; wound with minimal ss drainage, no cellulitis; ruth ann regular low fat diet; had BM q day for last 2 days; path report, gb severe cholecystitis - Patient Instructions Diet: Regular Diet as Tolerated Diet, Other: avoid greasy food X 3 wks Activity: No Lifting Over 10 Pounds, No Strenuous Activities Driving: Do Not Drive Showering/Bathing: May Shower in 3 Days Wound/Incision Care: Keep Operative Site/Wound Site Clean and Dry Notify Provider of: Fever, Drainage, Nausea and/or Vomiting - Discharge Plan Home Medications: Home Meds Amoxicillin 500 mg PO TID 10/17/17 [History] ClonazePAM [KlonoPIN] 0.25 mg PO ASDIRECTED PRN 10/17/17 [History] Latanoprost [Xalatan 0.005% Ophth Soln] 1 drop EYEBOTH BEDTIME 10/17/17 [History ] Levothyroxine Sodium [Levoxyl] 88 mcg PO DAILY 10/17/17 [History] Pilocarpine HCl 1 drop EYERT TID 10/17/17 [History] Timolol [Betimol 0.5% Ophth Soln] 1 drop EYEBOTH DAILY 10/17/17 [History] amLODIPine [Norvasc] 2.5 mg PO BEDTIME 10/17/17 [History] Patient Handouts: Open Cholecystectomy, Care After, Low-Fat Diet for Pancreatitis or Gallbladder Conditions Referrals: Liam Lynne MD [Physician] - 11/15/17 10:00 am - Discharge Summary/Plan Comment DC Time >30 min.: Yes - Patient Data Vitals - Most Recent: Last Vital Signs Temp 98.2 F 11/11/17 07:39 Pulse 88 11/11/17 07:39 Resp 20 11/11/17 07:39 BP 154/57 H 11/11/17 07:39 Pulse Ox 92 L 11/11/17 07:39 Weight - Most Recent: 194 lb 0.108 oz I&O - Last 24 hours: Intake & Output 11/10/17 11/11/17 11/11/17 22:59 06:59 14:59 Intake Total 1190 50 150 Output Total 6087 262 1109 Balance [phone] Lab Results - Last 24 hrs: Laboratory Results - last 24 hr 11/07/17 Range/Units 11:25 Crossmatch See Detail Med Orders - Current: Current Medications Al Hydroxide/Mg Hydroxide (Mag-Al Plus) 15 ml PO Q6H PRN PRN Reason: Heartburn Last Admin: 11/09/17 15:53 Dose: 15 ml Amlodipine Besylate (Norvasc) 2.5 mg PO BEDTIME MADHU Last Admin: 11/10/17 20:06 Dose: 2.5 mg Calcium Carbonate/Glycine (Tums) 1,000 mg PO Q4HR PRN PRN Reason: Heartburn Last Admin: 11/09/17 16:55 Dose: 1,000 mg Clonazepam (Klonopin) 0.25 mg PO DAILY PRN PRN Reason: Anxiety Docusate Sodium (Colace) 100 mg PO DAILY MADHU Last Admin: 11/11/17 08:13 Dose: 100 mg Levofloxacin/Dextrose 750 mg/ (Premix) 150 mls @ 100 mls/hr IV Q48H MADHU Last Admin: 11/09/17 14:46 Dose: 100 mls/hr Latanoprost (Xalatan 0.005% Ophth Soln) 0 ml EYEBOTH BEDTIME MADHU Last Admin: 11/10/17 21:00 Dose: 1 drop Levothyroxine Sodium (Synthroid) 88 mcg PO ACBREAKFAST MADHU Last Admin: 11/11/17 06:56 Dose: 88 mcg Ondansetron HCl (Zofran) 4 mg IVPUSH Q8H PRN PRN Reason: Nausea/Vomiting Last Admin: 11/09/17 20:41 Dose: 4 mg Oxycodone/Acetaminophen (Percocet 325-5 Mg) 1 tab PO Q4H PRN PRN Reason: Pain Last Admin: 11/10/17 06:35 Dose: 1 tab Pilocarpine HCl (Pilocar 4% Ophth Soln) 1 ml EYERT TID [facility] Last Admin: 11/11/17 06:54 Dose: 1 drop Timolol Maleate (Timoptic 0.5% Ophth Soln) 1 ml EYEBOTH DAILY [facility] Last Admin: 11/11/17 08:15 Dose: 1 drop Discontinued Medications Bupivacaine HCl (Marcaine 0.5%) Confirm Administered Dose 120 ml .ROUTE .STK- MED ONE Stop: 11/07/17 11:01 Clonazepam (Klonopin) 0.5 mg PO ASDIRECTED PRN PRN Reason: Anxiety Clonazepam (Klonopin) 0.5 mg PO BEDTIME PRN PRN Reason: Anxiety Dexamethasone (Dexamethasone) Confirm Administered Dose 20 mg .ROUTE .STK-MED ONE Stop: 11/07/17 09:44 Fentanyl (Sublimaze) Confirm Administered Dose 250 mcg .ROUTE .STK-MED ONE Stop: 11/07/17 08:06 Fentanyl (Sublimaze) Confirm Administered Dose 100 mcg .ROUTE .STK-MED ONE Stop: 11/07/17 10:48 Furosemide (Lasix) Confirm Administered Dose 40 mg .ROUTE .STK-MED ONE Stop: 11/07/17 12:12 Furosemide (Lasix) 20 mg PO ONETIME ONE Stop: 11/10/17 12:58 Last Admin: 11/10/17 13:03 Dose: Not Given Furosemide (Lasix) 10 mg PO ONETIME ONE Stop: 11/10/17 12:58 Last Admin: 11/10/17 13:13 Dose: 10 mg Glycopyrrolate (Robinul) Confirm Administered Dose 0.4 mg .ROUTE .STK-MED ONE Stop: 11/07/17 12:11 Hydromorphone HCl (Dilaudid) Confirm Administered Dose 2 mg .ROUTE .STK-MED ONE Stop: 11/07/17 10:49 Cefazolin Sodium/Dextrose 1 gm (/ Premix) 50 mls @ 100 mls/hr IV ONETIME ONE Stop: 11/07/17 05:29 Last Admin: 11/07/17 14:33 Dose: Not Given Cefazolin Sodium/Dextrose 1 gm (/ Premix) 50 mls @ 100 mls/hr IV ONETIME ONE Stop: 11/07/17 14:57 Lactated Ringer's (Ringers, Lactated) 1,000 mls @ 125 mls/hr IV ASDIRECTED [facility] Last Infusion: 11/07/17 16:52 Dose: 100 mls/hr Lactated Ringer's (Ringers, Lactated) 1,000 mls @ 125 mls/hr IV ASDIRECTED [facility] Bupivacaine HCl/Epinephrine Bitart (Sensorc Mpf 0.25%-Epi [id number]) Confirm Administered Dose 30 mls @ as directed .ROUTE .STK-MED ONE Stop: 11/07/17 07:26 Acetaminophen (Ofirmev) Confirm Administered Dose 100 mls @ as directed IV .STK- MED ONE Stop: 11/07/17 08:23 Lactated Ringer's (Ringers, Lactated) 1,000 mls @ 75 mls/hr IV ASDIRECTED [facility] Levofloxacin/Dextrose 750 mg/ (Premix) 150 mls @ 100 mls/hr IV Q24H [facility] Last Admin: 11/08/17 12:33 Dose: 100 mls/hr Lactated Ringer's (Ringers, Lactated) 1,000 mls @ 100 mls/hr IV ASDIRECTED [facility] Last Admin: 11/08/17 22:48 Dose: 100 mls/hr Lactated Ringer's (Ringers, Lactated) 1,000 mls @ 999 mls/hr IV .BOLUS ONE Stop: 11/08/17 09:49 Last Admin: 11/08/17 08:45 Dose: 999 mls/hr Magnesium Sulfate 2 gm/ Premix 50 mls @ 50 mls/hr IV ONETIME ONE Stop: 11/08/17 09:51 Last Admin: 11/08/17 09:53 Dose: 50 mls/hr Lactated Ringer's (Ringers, Lactated) 1,000 mls @ 50 mls/hr IV ASDIRECTED [facility] Last Admin: 11/09/17 20:32 Dose: 50 mls/hr Lactated Ringer's (Ringers, Lactated) 1,000 mls @ 999 mls/hr IV .BOLUS ONE Stop: 11/09/17 16:22 Last Admin: 11/09/17 15:52 Dose: 999 mls/hr Lidocaine (Xylocaine-Mpf 2%) Confirm Administered Dose 5 ml .ROUTE .STK-MED ONE Stop: 11/07/17 09:43 Midazolam HCl (Versed 1 Mg/Ml) Confirm Administered Dose 2 mg .ROUTE .STK-MED ONE Stop: 11/07/17 08:06 Mineral Oil/White Petrolatum (Lacri-Lube S.O.P Oint) Confirm Administered Dose 3.5 gm .ROUTE .STK-MED ONE Stop: 11/07/17 10:53 Morphine Sulfate (Morphine Radio Program Checker 30 Mg In 30 Ml) 0 mg IV ASDIRECTED PRN; Protocol PRN Reason: Pain Last Admin: 11/07/17 14:24 Dose: 30 mg Neostigmine Methylsulfate (Neostigmine) Confirm Administered Dose 5 mg .ROUTE .STK-MED ONE Stop: 11/07/17 12:11 Octyl Cyanoacrylate (Dermabond Advance) Confirm Administered Dose 1 applic .ROUTE .STK-MED ONE Stop: 11/07/17 07:50 Ondansetron HCl (Zofran) Confirm Administered Dose 4 mg .ROUTE .STK-MED ONE Stop: 11/07/17 08:05 Oxycodone/Acetaminophen (Percocet 325-5 Mg) 1 tab PO Q4H PRN PRN Reason: Pain Phenylephrine HCl (Phenylephrine In Ns 100 Mcg/Ml) Confirm Administered Dose 1 mg .ROUTE .STK-MED ONE Stop: 11/07/17 10:53 Pilocarpine HCl (Pilocar 4% Ophth Soln) 0 ml EYERT DAILY [facility] Last Admin: 11/08/17 10:49 Dose: Not Given Propofol (Diprivan 20 Ml) Confirm Administered Dose 200 mg .ROUTE .STK-MED ONE Stop: 11/07/17 08:06 Rocuronium [place] (Zemuron) Confirm Administered Dose 100 mg .ROUTE .STK-MED ONE Stop: 11/07/17 08:05 *Q Meaningful Use (DIS) - VTE *Q VTE Criteria *Q: - Stroke *Q Stroke Criteria *Q: - AMI *Q AMI Criteria *Q:
[2017-11-11] MEDS: Levofloxacin/Dextrose 5%-Water 750 MG in Premix Bag 1 BAG IV SCH (12:01)
== END 2017-11-11 14:00 | disposition home or self-care (01) | DRG 416 ==
LOC: MW.SDS 08:08 → MW.MS 10:50 → MW.ICU 11:58 → OBSVTOIN 13:57
PROVIDERS: ADMIT Surgery; ATTEND Surgery
PROC: 0FT40ZZ Resection of Gallbladder, Open Approach (ICD-10-PCS; principal; 2017-11-07)
PROC: 30233N1 Transfusion of Nonautologous Red Blood Cells into Peripheral Vein, Percutaneous Approach (ICD-10-PCS; 2017-11-07)
DX: K80.12 Calculus of gallbladder with acute and chronic cholecystitis without obstruction (principal); K66.0 Peritoneal adhesions (postprocedural) (postinfection); Z88.1 Allergy status to other antibiotic agents; Z88.2 Allergy status to sulfonamides; Z79.899 Other long term (current) drug therapy
CPT/HCPCS: 36415; 36430; 47480; J1100; J1170; J1940; J2250; J2405; J3010 ×2; J7120; P9016 ×2; 00790; 80053; 83735; 85025; 88304; 93005; A9270-GY; J1956; J2274; J2704; J3475

== ENCOUNTER 2018-01-02 14:16 | Emergency (ER) | payer MEDICARE, OTHER ==
--- NOTE | 2018-01-02 14:47 | EDM.PDOC ---
ED HPI GENERAL MEDICAL PROBLEM - General Chief Complaint: Lower Extremity Injury/Pain Stated Complaint: left leg pain Time Seen by Provider: 01/02/18 14:30 Source of Information: Reports: Patient History Limitations: Reports: No Limitations - History of Present Illness INITIAL COMMENTS - FREE TEXT/NARRATIVE: HISTORY AND PHYSICAL: History of present illness: Patient is a 77-year-old female who presents to the emergency room today with complaints of redness and swelling to the left lower extremity. She states she started to notice a small localized area of redness to her left inner calf and Monday. She reports that multiple people have told her that she should come to be evaluated to make sure she does not have a "blood clot". He does have generalized swelling to the left lower extremity which she states is normal and does have this intermittently. He denies any fever, chills, chest pain or shortness of breath. Denies any abdominal pain, nausea, vomiting, diarrhea or constipation. Review of systems: As per history of present illness and below otherwise all systems reviewed and negative. Past medical history: As per history of present illness and as reviewed below otherwise noncontributory. Surgical history: As per history of present illness and as reviewed below otherwise noncontributory. Social history: No reported history of drug or alcohol abuse. Family history: As per history of present illness and as reviewed below otherwise noncontributory. Physical exam: General: Well-developed and well-nourished 77-year-old female. Alert and oriented. Nontoxic appearing and in no acute distress. HEENT: Atraumatic, normocephalic, pupils equal and reactive bilaterally, negative for conjunctival pallor or scleral icterus, mucous membranes moist, throat clear, neck supple, nontender, trachea midline. No drooling or trismus noted. No meningeal signs Lungs: Clear to auscultation, breath sounds equal bilaterally, chest nontender. Heart: S1S2, regular rate and rhythm without overt murmur Abdomen: Soft, nondistended, nontender. Negative for masses or hepatosplenomegaly. Negative for costovertebral tenderness. Pelvis: Stable nontender. Genitourinary: Deferred. Rectal: Deferred. Skin/Extremities: Diffuse area of redness noted to the left medial calf. Mild tenderness with palpation. +2 pitting edema to left lower extremity. +1 pitting edema to right lower extremity. Strong pedal pulses bilaterally. Capillary refill less than 3 seconds. Intact, warm, dry. No lesions or rashes noted. No trauma to the extremities, negative for cords or calf pain. Neurovascular unremarkable. Neuro: Awake, alert, oriented. Cranial nerves II through XII unremarkable. Cerebellum unremarkable. Motor and sensory unremarkable throughout. Exam nonfocal. Notes: Labs are within normal limits. U/S shows filling defect within the popliteal vein consistent with a DVT. Partial filling defect within the proximal femoral vein which could represent thrombus or previous DVT. Dr. Elizabeth was consulted on this case. He did recommend placing the patient on day anticoagulant outpatient. Xarelto 15 mg one tab twice a day 21 days. Informed the patient that this will be changed after those 21 days or her primary care provider. We discussed signs and symptoms that would prompt her to come back to the emergency room. She voices understanding and is agreeable to plan of care. She denies any further questions at this time. Diagnostics: CBC, CMP, PT INR, ultrasound Therapeutics: [] Impression: DVT, left calf Plan: 1. Please take the Xarelto 15mg one tab twice daily over the next 21 days. Your primary care doctor will change the dose/frequency after the first 21 days. Do not take any additional blood thinners such as extra aspirins or ibuprofens until okay'd by Dr Shapre. 2. It is imperative that you have close follow-up with your primary care doctor , Dr Sharpe within the next couple days. 3. Compression stockings to lower extremities during day time hours. Rest and elevate your extremities when able. 4. Follow up as we discussed. Return to the ED as needed and as discussed. Definitive disposition and diagnosis as appropriate pending reevaluation and review of above. Onset Date: 12/29/17 Duration: Day(s): Location: Reports: Lower Extremity, Left Left Lower Leg Pain Score (Numeric/FACES): 2 - Related Data Allergies Allergy/AdvReac Type Severity Reaction Status Date / Time brimonidine [From Alphagan P] Allergy "eye Verified 01/02/18 14:40 infection" ciprofloxacin [From Cipro] Allergy "made me Verified 01/02/18 14:40 tired" lisinopril Allergy Hives Verified 01/02/18 14:40 nitrofurantoin Allergy Rash Verified 01/02/18 14:40 [From Macrobid] Sulfa (Sulfonamide Allergy Rash Verified 01/02/18 14:40 Antibiotics) Home Meds: Home Meds Amoxicillin 500 mg PO TID 10/17/17 [History] ClonazePAM [KlonoPIN] 0.25 mg PO ASDIRECTED PRN 10/17/17 [History] Latanoprost [Xalatan 0.005% Ophth Soln] 1 drop EYEBOTH BEDTIME 10/17/17 [History ] Levothyroxine Sodium [Levoxyl] 88 mcg PO DAILY 10/17/17 [History] Pilocarpine HCl 1 drop EYERT TID 10/17/17 [History] Timolol [Betimol 0.5% Ophth Soln] 1 drop EYEBOTH DAILY 10/17/17 [History] amLODIPine [Norvasc] 2.5 mg PO BEDTIME 10/17/17 [History] Docusate Sodium [Colace] 100 mg PO DAILY #3 capsule 11/11/17 [Rx] Levofloxacin 750 mg PO DAILY #3 tablet 11/11/17 [Rx] oxyCODONE HCl/Acetaminophen [Percocet 5-325 mg Tablet] 1 each PO Q8H PRN #20 tablet 11/11/17 [Rx] Past Medical History HEENT History: Reports: Glaucoma, Other (See Below) Other HEENT History: wears glasses Cardiovascular History: Reports: Hypertension Gastrointestinal History: Reports: None Genitourinary History: Reports: None 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: , 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 Musculoskeletal History: Reports: Fracture Psychiatric History: Reports: Anxiety, Depression Endocrine/Metabolic History: Reports: Hypothyroidism, Obesity/BMI 30+, Other ( See Below) Other Endocrine/Metabolic History: states is hypoglycemic Hematologic History: Reports: Blood Transfusion(s) - Past Surgical History Head Surgeries/Procedures: Reports: None GI Surgical History: Reports: Other (See Below) Other GI Surgeries/Procedures: laparotomy for stomach tumor Musculoskeletal Surgical History: Reports: Other (See Below) Other Musculoskeletal Surgeries/Procedures:: surgical tx for fx rt leg Social & Family History - Tobacco Use Smoking Status *Q: Former Smoker Used Tobacco, but Quit: Yes Month/Year Tobacco Last Used: quit smoking 25 yrs ago - Recreational Drug Use Recreational Drug Use: No Review of Systems - Review of Systems Review Of Systems: ROS reveals no pertinent complaints other than HPI. ED EXAM, GENERAL - Physical Exam Exam: See Below (See dictation) Course - Vital Signs Last Recorded V/S: Last Vital Signs Temp 97.3 F 01/02/18 15:46 Pulse 99 01/02/18 16:25 Resp 18 01/02/18 16:25 BP 167/92 H 01/02/18 16:25 Pulse Ox 96 01/02/18 16:25 - Orders/Labs/Meds Labs: Laboratory Tests 01/02/18 01/02/18 01/02/18 Range/Units 14:49 14:49 14:49 WBC 6.51 (4.0-11.0) K/uL RBC 4.76 (4.30-5.90) M/uL Hgb 13.2 (12.0-16.0) g/dL Hct 41.7 (36.0-46.0) % MCV 87.6 (80.0-98.0) fL MCH 27.7 (27.0-32.0) pg MCHC 31.7 (31.0-37.0) g/dL RDW Std Deviation 51.8 (28.0-62.0) fl RDW Coeff of Shira 16 H (11.0-15.0) % Plt Count 280 (150-400) K/uL MPV 9.20 (7.40-12.00) fL Neut % (Auto) 57.7 (48.0-80.0) % Lymph % (Auto) 24.9 (16.0-40.0) % Graham % (Auto) 9.5 (0.0-15.0) % Eos % (Auto) 7.4 H (0.0-7.0) % Baso % (Auto) 0.5 (0.0-1.5) % Neut # (Auto) 3.8 (1.4-5.7) K/uL Lymph # (Auto) 1.6 (0.6-2.4) K/uL Graham # (Auto) 0.6 (0.0-0.8) K/uL Eos # (Auto) 0.5 (0.0-0.7) K/uL Baso # (Auto) 0.0 (0.0-0.1) K/uL Nucleated RBC % 0.0 /100WBC Nucleated RBCs # 0 K/uL INR 1.15 Sodium 140 (136-145) mmol/L Potassium 4.3 (3.5-5.1) mmol/L Chloride 105 (98-107) mmol/L Carbon Dioxide 24.5 (21.0-32.0) mmol/L BUN 13 (7.0-18.0) mg/dL Creatinine 1.0 (0.6-1.0) mg/dL Est Cr Clr Drug Dosing 33.30 mL/min Estimated GFR (MDRD) 53.6 ml/min Glucose 109 H (74-106) mg/dL Calcium 9.4 (8.5-10.1) mg/dL Total Bilirubin 0.5 (0.2-1.0) mg/dL AST 20 (15-37) IU/L ALT 16 (14-63) IU/L Alkaline Phosphatase 99 (46-116) U/L Total Protein 8.0 (6.4-8.2) g/dL Albumin 3.5 (3.4-5.0) g/dL Globulin 4.5 H (2.0-3.5) g/dL Albumin/Globulin Ratio 0.8 L (1.3-2.8) Departure - Departure Time of Disposition: 16:03 Disposition: Home, Self-Care 01 Clinical Impression: DVT (deep venous thrombosis) Qualifiers: DVT location: lower extremity Affected thrombotic vein of extremity: popliteal Chronicity: acute Laterality: left Qualified Code(s): I82.432 - Acute embolism and thrombosis of left popliteal vein - Discharge Information Instructions: Deep Vein Thrombosis Referrals: Levi Rose MD [Primary Care Provider] - Forms: ED Department Discharge Additional Instructions: The following information is given to patients seen in the emergency department who are being discharged to home. This information is to outline your options for follow-up care. We provide all patients seen in our emergency department with a follow-up referral. The need for follow-up, as well as the timing and circumstances, are variable depending upon the specifics of your emergency department visit. If you don't have a primary care physician on staff, we will provide you with a referral. We always advise you to contact your personal physician following an emergency department visit to inform them of the circumstance of the visit and for follow-up with them and/or the need for any referrals to a consulting specialist. The emergency department will also refer you to a specialist when appropriate. This referral assures that you have the opportunity for follow-up care with a specialist. All of these measure are taken in an effort to provide you with optimal care, which includes your follow-up. Under all circumstances we always encourage you to contact your private physician who remains a resource for coordinating your care. When calling for follow-up care, please make the office aware that this follow-up is from your recent emergency room visit. If for any reason you are refused follow-up, please contact the [facility] Emergency Department at and asked to speak to the emergency department charge nurse. [facility] [address] [place] [id number] 1. Please take the Xarelto 15mg one tab twice daily over the next 21 days. Your primary care doctor will change the dose/frequency after the first 21 days. Do not take any additional blood thinners such as extra aspirins or ibuprofens until okay'd by Dr Sharpe. 2. It is imperative that you have close follow-up with your primary care doctor , Dr Sharpe within the next couple days. 3. Compression stockings to lower extremities during day time hours. Rest and elevate your extremities when able. 4. Follow up as we discussed. Return to the ED as needed and as discussed.
--- NOTE | 2018-01-02 15:49 | US ---
ULTRASOUND EXAMINATION OF the left lower extremity WITH DOPPLER HISTORY: Swelling FINDINGS: Examination of the left leg was performed from the groin to the calf region. There is a partial filli ng defect within the proximal left femoral vein, however distally the femoral vein appears compressib le. The popliteal vein is noncompressible with minimal appreciable color Doppler flow. Calf veins are not well characterized. IMPRESSION: 1. Filling defect within the popliteal vein consistent with a deep vein thrombosis. 2. Partial filling defect within the proximal filling defect which may represent thrombus, or possibl y scarring from a previous DVT.
== END 2018-01-02 16:25 | disposition home or self-care (01) ==
LOC: MW.ED 14:16
DX: I82.432 Acute embolism and thrombosis of left popliteal vein (principal); I10 Essential (primary) hypertension; Z88.1 Allergy status to other antibiotic agents; Z88.8 Allergy status to other drugs, medicaments and biological substances; Z88.2 Allergy status to sulfonamides; Z79.899 Other long term (current) drug therapy; Z87.891 Personal history of nicotine dependence
CPT/HCPCS: 36415; 80053; 85025; 85610; 93971-26-LT; 93971-LT; 99283; 99284-25

== ENCOUNTER 2018-10-25 00:19 | Emergency (ER) | payer MEDICARE, OTHER ==
--- NOTE | 2018-10-25 00:37 | EDM.PDOC ---
ED HPI GENERAL MEDICAL PROBLEM - General Chief Complaint: ENT Problem Stated Complaint: NOSE BLEED Time Seen by Provider: 10/25/18 00:34 - History of Present Illness INITIAL COMMENTS - FREE TEXT/NARRATIVE: HISTORY AND PHYSICAL: History of present illness: Patient 78-year-old female presents with concern right-sided epistaxis patient is currently on Xarelto she denies trauma denies other bleeding or problems. Review of systems: As per history of present illness and below otherwise all systems reviewed and negative. Past medical history: As per history of present illness and as reviewed below otherwise noncontributory. Surgical history: As per history of present illness and as reviewed below otherwise noncontributory. Social history: No reported history of drug or alcohol abuse. Family history: As per history of present illness and as reviewed below otherwise noncontributory. Physical exam: HEENT: Atraumatic, normocephalic, pupils reactive, negative for conjunctival pallor or scleral icterus, mucous membranes moist, throat clear, neck supple, nontender, trachea midline. Mild active bleeding from right nares on arrival no obvious source of bleeding Lungs: Clear to auscultation, breath sounds equal bilaterally, chest nontender. Heart: S1S2, regular, negative for clicks, rubs, or JVD. Abdomen: Soft, nondistended, nontender. Negative for masses or hepatosplenomegaly. Negative for costovertebral tenderness. Pelvis: Stable nontender. Genitourinary: Deferred. Rectal: Deferred. Extremities: Atraumatic, negative for cords or calf pain. Neurovascular unremarkable. Neuro: Awake, alert, oriented. Cranial nerves II through XII unremarkable. Cerebellum unremarkable. Motor and sensory unremarkable throughout. Exam nonfocal. Diagnostics: None Therapeutics: Rhino Rocket was placed patient tolerated procedure well mustache dressing was applied Impression: #1 right-sided epistaxis status post Rhino Rocket insertion Definitive disposition and diagnosis as appropriate pending reevaluation and review of above. denies pain Pain Score (Numeric/FACES): 0 - Related Data Allergies Allergy/AdvReac Type Severity Reaction Status Date / Time brimonidine [From Alphagan P] Allergy "eye Verified 10/25/18 00:20 infection" ciprofloxacin [From Cipro] Allergy "made me Verified 10/25/18 00:20 tired" lisinopril Allergy Hives Verified 10/25/18 00:20 nitrofurantoin Allergy Rash Verified 10/25/18 00:20 [From Macrobid] Sulfa (Sulfonamide Allergy Rash Verified 10/25/18 00:20 Antibiotics) Home Meds: Home Meds ClonazePAM [KlonoPIN] 0.25 mg PO ASDIRECTED PRN 10/17/17 [History] Latanoprost [Xalatan 0.005% Ophth Soln] 1 drop EYEBOTH BEDTIME 10/17/17 [History ] Levothyroxine Sodium [Levoxyl] 88 mcg PO DAILY 10/17/17 [History] Pilocarpine HCl 1 drop EYERT TID 10/17/17 [History] Timolol [Betimol 0.5% Ophth Soln] 1 drop EYEBOTH DAILY 10/17/17 [History] amLODIPine [Norvasc] 2.5 mg PO BEDTIME 10/17/17 [History] Docusate Sodium [Colace] 100 mg PO DAILY #3 capsule 11/11/17 [Rx] Levofloxacin 750 mg PO DAILY #3 tablet 11/11/17 [Rx] Rivaroxaban [Xarelto] 10 mg PO DAILY 07/20/18 [History] Past Medical History HEENT History: Reports: Glaucoma, Other (See Below) Other HEENT History: wears glasses Cardiovascular History: Reports: Hypertension Gastrointestinal History: Reports: None Genitourinary History: Reports: None 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: , 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 Musculoskeletal History: Reports: Fracture Psychiatric History: Reports: Anxiety, Depression Endocrine/Metabolic History: Reports: Hypothyroidism, Obesity/BMI 30+, Other ( See Below) Other Endocrine/Metabolic History: states is hypoglycemic Hematologic History: Reports: Blood Transfusion(s) - Infectious Disease History Infectious Disease History: Reports: None - Past Surgical History Head Surgeries/Procedures: Reports: None GI Surgical History: Reports: Other (See Below) Other GI Surgeries/Procedures: laparotomy for stomach tumor Musculoskeletal Surgical History: Reports: Other (See Below) Other Musculoskeletal Surgeries/Procedures:: surgical tx for fx rt leg Social & Family History - Family History Family Medical History: Noncontributory - Caffeine Use Caffeine Use: Reports: Other ED ROS GENERAL - Review of Systems Review Of Systems: ROS reveals no pertinent complaints other than HPI. ED EXAM, GENERAL - Physical Exam Exam: See Below (See dictation) Course - Vital Signs Last Recorded V/S: Last Vital Signs Temp 36.3 C 10/25/18 00:20 Pulse 98 10/25/18 00:20 Resp 18 10/25/18 00:20 BP 168/68 H 10/25/18 00:20 Pulse Ox 98 10/25/18 00:20 Departure - Departure Time of Disposition: 00:36 Disposition: Home, Self-Care 01 Condition: Good Clinical Impression: Epistaxis - Discharge Information Referrals: Levi Rose MD [Primary Care Provider] - Additional Instructions: The following information is given to patients seen in the emergency department who are being discharged to home. This information is to outline your options for follow-up care. We provide all patients seen in our emergency department with a follow-up referral. The need for follow-up, as well as the timing and circumstances, are variable depending upon the specifics of your emergency department visit. If you don't have a primary care physician on staff, we will provide you with a referral. We always advise you to contact your personal physician following an emergency department visit to inform them of the circumstance of the visit and for follow-up with them and/or the need for any referrals to a consulting specialist. The emergency department will also refer you to a specialist when appropriate. This referral assures that you have the opportunity for followup care with a specialist. All of these measure are taken in an effort to provide you with optimal care, which includes your followup. Under all circumstances we always encourage you to contact your private physician who remains a resource for coordinating your care. When calling for followup care, please make the office aware that this follow-up is from your recent emergency room visit. If for any reason you are refused follow-up, please contact the [facility] emergency department at and asked to speak to the emergency department charge nurse. Augmentin as prescribed Rhino Rocket management as directed follow-up 48-72 hours for reevaluation and removal return as needed as discussed
== END 2018-10-25 01:15 | disposition home or self-care (01) ==
LOC: MW.ED 00:19
DX: R04.0 Epistaxis (principal); I10 Essential (primary) hypertension; F32.9 Major depressive disorder, single episode, unspecified; E03.9 Hypothyroidism, unspecified; Z88.8 Allergy status to other drugs, medicaments and biological substances; Z88.2 Allergy status to sulfonamides; Z79.899 Other long term (current) drug therapy; Z88.1 Allergy status to other antibiotic agents
CPT/HCPCS: 99283

== ENCOUNTER 2018-10-27 10:20 | Emergency (ER) | payer MEDICARE, OTHER ==
--- NOTE | 2018-10-27 10:46 | EDM.PDOC ---
ED HPI GENERAL MEDICAL PROBLEM - General Chief Complaint: ENT Problem Stated Complaint: REMOVAL OF APPARATUS FOR NOSE Time Seen by Provider: 10/27/18 10:46 Source of Information: Reports: Patient History Limitations: Reports: No Limitations - History of Present Illness INITIAL COMMENTS - FREE TEXT/NARRATIVE: HISTORY AND PHYSICAL: History of present illness: Patient is a 78-year-old female here for rhino-rocket removal. She had it placed 2 days ago for epistaxis. She is on xarelto. She denies dizziness, headache, shortness of breath, chest pain, syncope. Review of systems: As per history of present illness and below otherwise all systems reviewed and negative. Past medical history: As per history of present illness and as reviewed below otherwise noncontributory. Surgical history: As per history of present illness and as reviewed below otherwise noncontributory. Social history: No reported history of drug or alcohol abuse. Family history: As per history of present illness and as reviewed below otherwise noncontributory. Physical exam: General: Patient sitting comfortably in no acute distress and nontoxic appearing HEENT: Atraumatic, normocephalic, pupils reactive, negative for conjunctival pallor or scleral icterus, mucous membranes moist, throat clear, neck supple, nontender, trachea midline. No meningeal signs. Lungs: Clear to auscultation, breath sounds equal bilaterally, chest nontender. Heart: S1S2, regular, negative for clicks, rubs, or overt murmur. Abdomen: Soft, nondistended, nontender. Negative for masses or hepatosplenomegaly. Negative for costovertebral tenderness. Pelvis: Stable nontender. Genitourinary: Deferred. Rectal: Deferred. Extremities: Atraumatic, negative for cords or calf pain. Neurovascular unremarkable. Neuro: Awake, alert, oriented. Cranial nerves II through XII unremarkable. Cerebellum unremarkable. Motor and sensory unremarkable throughout. Exam nonfocal. Notes: Rhinorocket deflated and easily removed without any complications. Diagnostics: None Therapeutics: None Prescriptions: None Impression: Rhino-rocket removal for epistaxis, medical screening exam Plan: 1. No blowing nose as instructed. Finish antibiotic as instructed. 2. Follow up with primary care provider 3. Return to ED as needed as discussed Definitive disposition and diagnosis as appropriate pending reevaluation and review of above. - Related Data Allergies Allergy/AdvReac Type Severity Reaction Status Date / Time brimonidine [From Alphagan P] Allergy "eye Verified 10/27/18 10:45 infection" ciprofloxacin [From Cipro] Allergy "made me Verified 10/27/18 10:45 tired" lisinopril Allergy Hives Verified 10/27/18 10:45 nitrofurantoin Allergy Rash Verified 10/27/18 10:45 [From Macrobid] Sulfa (Sulfonamide Allergy Rash Verified 10/27/18 10:45 Antibiotics) Home Meds: Home Meds ClonazePAM [KlonoPIN] 0.25 mg PO ASDIRECTED PRN 10/17/17 [History] Latanoprost [Xalatan 0.005% Ophth Soln] 1 drop EYEBOTH BEDTIME 10/17/17 [History ] Levothyroxine Sodium [Levoxyl] 88 mcg PO DAILY 10/17/17 [History] Pilocarpine HCl 1 drop EYERT TID 10/17/17 [History] Timolol [Betimol 0.5% Ophth Soln] 1 drop EYEBOTH DAILY 10/17/17 [History] amLODIPine [Norvasc] 2.5 mg PO BEDTIME 10/17/17 [History] Docusate Sodium [Colace] 100 mg PO DAILY #3 capsule 11/11/17 [Rx] Levofloxacin 750 mg PO DAILY #3 tablet 11/11/17 [Rx] Rivaroxaban [Xarelto] 10 mg PO DAILY 07/20/18 [History] Past Medical History HEENT History: Reports: Glaucoma, Other (See Below) Other HEENT History: wears glasses Cardiovascular History: Reports: Hypertension Respiratory History: Reports: None Gastrointestinal History: Reports: None Genitourinary History: Reports: None [employer]ER History: Reports: , Spontaneous Musculoskeletal History: Reports: Fracture Neurological History: Reports: None Psychiatric History: Reports: Anxiety, Depression Endocrine/Metabolic History: Reports: Hypothyroidism, Obesity/BMI 30+, Other ( See Below) Other Endocrine/Metabolic History: states is hypoglycemic Hematologic History: Reports: Blood Transfusion(s) Immunologic History: Reports: None Oncologic (Cancer) History: Reports: Other (See Below) Other Oncologic History: Stomach Tumor Dermatologic History: Reports: None - Infectious Disease History Infectious Disease History: Reports: None - Past Surgical History Head Surgeries/Procedures: Reports: None GI Surgical History: Reports: Other (See Below) Other GI Surgeries/Procedures: laparotomy for stomach tumor Musculoskeletal Surgical History: Reports: Other (See Below) Other Musculoskeletal Surgeries/Procedures:: surgical tx for fx rt leg Social & Family History - Family History Family Medical History: Noncontributory - Caffeine Use Caffeine Use: Reports: Other ED ROS ENT - Review of Systems Review Of Systems: ROS reveals no pertinent complaints other than HPI. ED EXAM, ENT - Physical Exam Exam: See Below (see dictation) Departure - Departure Time of Disposition: 10:47 Disposition: Home, Self-Care 01 Condition: Good Clinical Impression: Encounter for medical screening examination - Discharge Information Referrals: Levi Rose MD [Primary Care Provider] - Forms: ED Department Discharge Additional Instructions: The following information is given to patients seen in the emergency department who are being discharged to home. This information is to outline your options for follow-up care. We provide all patients seen in our emergency department with a follow-up referral. The need for follow-up, as well as the timing and circumstances, are variable depending upon the specifics of your emergency department visit. If you don't have a primary care physician on staff, we will provide you with a referral. We always advise you to contact your personal physician following an emergency department visit to inform them of the circumstance of the visit and for follow-up with them and/or the need for any referrals to a consulting specialist. The emergency department will also refer you to a specialist when appropriate. This referral assures that you have the opportunity for follow-up care with a specialist. All of these measure are taken in an effort to provide you with optimal care, which includes your follow-up. Under all circumstances we always encourage you to contact your private physician who remains a resource for coordinating your care. When calling for follow-up care, please make the office aware that this follow-up is from your recent emergency room visit. If for any reason you are refused follow-up, please contact the [facility] Emergency Department at and asked to speak to the emergency department charge nurse. [address] [address] 1. No blowing nose as instructed 2. Follow up with primary care provider 3. Return to ED as needed as discussed
== END 2018-10-27 11:03 | disposition home or self-care (01) ==
LOC: MW.ED 10:20
DX: Z48.00 Encounter for change or removal of nonsurgical wound dressing (principal); I10 Essential (primary) hypertension; F41.9 Anxiety disorder, unspecified; F32.9 Major depressive disorder, single episode, unspecified; Z79.899 Other long term (current) drug therapy
CPT/HCPCS: 99282